=== PATIENT | female | born 1945 | race Caucasian/White ===

== ENCOUNTER 2024-11-16 10:46 | Outpatient (AMB) | payer MEDICARE, SELFPAY ==
--- OUTSIDE RECORDS SUMMARY | 2024-11-16 10:49 | XMS_ITS | Continuity of Care Document ---
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 Immunizations Given and Recorded Vaccine Date Status Refusal Reason influenza virus vaccine, inactivated 08/31/23 [place] rded influenza virus vaccine, inactivated 09/29/22 [place] rded influenza virus vaccine, inactivated 10/13/21 [place] rded influenza virus vaccine, inactivated 09/23/20 Give n influenza virus vaccine, inactivated 10/18/19 Give n influenza virus vaccine, inactivated 09/07/18 Give n influenza virus vaccine, inactivated 1 09/03/17 Gi abraham influenza virus vaccine, inactivated 09/16/16 Give n influenza virus vaccine, inactivated 10/25/15 Give n influenza virus vaccine, inactivated 01/19/14 Give n influenza virus vaccine, inactivated 2 09/18/11 Gi abraham influenza virus vaccine, inactivated 10/25/10 Give n SARS-CoV-2(COVID-19)mRNA-LNP vac([id number]) 08/31/23 Recorded tetanus-diphtheria toxoids (Td) 3 07/13/23 Given tetanus-diphtheria toxoids (Td) 11/29/04 Given pneumococcal 20-valent conjugate vaccine 4 07/13/23 Given [id number] bivalent booster vax 10/15/22 Recorded SARS-CoV-2 (COVID-19) mRNA-1273 vaccine 05/12/22 R ecorded SARS-CoV-2 (COVID-19) mRNA-1273 vaccine 09/23/21 R ecorded SARS-CoV-2 (COVID-19) mRNA-1273 vaccine 02/18/21 G iven SARS-CoV-2 (COVID-19) mRNA-1273 vaccine 01/21/21 G iven pneumococcal 23-valent vaccine 05/15/19 Given pneumococcal 13-valent vaccine 01/29/15 Given FluLaval (oldterm) 07/29/12 Given tetanus/diphtheria/pertussis, acel(Tdap) 07/29/12 Given influ virus vac, H1N1, inactive(oldterm) 5 01/07/10 Given Influenza Virus Vaccine (oldterm) 6 01/07/10 Given Influenza Virus Vaccine (oldterm) 09/29/08 Given Hepatitis B Vaccine (old term) 7 12/21/08 Given Hepatitis B Vaccine (old term) 8 08/01/08 Given Hepatitis B Vaccine (old term) 9 06/27/08 Given Influenza Inactive (IM) (oldterm) 11/29/05 Given Pneumococcal Vaccine (oldterm) 11/29/05 Given 1Result Comment: [09/03/2017] [facility]: [id number] 2Admin Note: ANUEL 3Result Comment: [id number] 4Result Comment: [id number] 5Admin Note: per pt rcvd elsewhere 6Admin Note: per pt rcvd eklsewhere 7Admin Note: #3 8Admin Note: #2 9Admin Note: # 1 Medications amLODIPine 5 mg oral tablet See Instructions, TAKE 1 TABLET EVERY DAY, # 90 tablet, 1 Refills, Maintenance, 09/29/24 12:07:00 [facility], 158, cm, 06/23/24 9:05:00 EDT, Height Start Date: 09/29/24 Status: Ordered Quantity: 90.0 Unit: tablet Repeat number: 1 aspirin 81 mg oral delayed release tablet 81 mg, 1, tablet, By Mouth, Daily, # 90 tablet, Refills 0, Maintenance, 01/13/24 11:19:00 AM EST, Partial fill upon patient request if the prescription is for a schedule II opioid drug. Start Date: 01/13/24 Status: Ordered Quantity: 90.0 Unit: tablet Repeat number: 1 cholecalciferol 1000 intl units oral capsule 1 capsule = 1,000 International_Units, By Mouth, Daily, 0 Refills, Maintenance, 01/07/10 1:03:05 PM EST Start Date: 01/07/10 Status: Ordered Repeat number: 1 CPAP Machine See Instructions, # 1 each, Refills 0, Tot. Refills 0, Maintenance, AUTO CPAP 8- 20cm H2O WITH HEATED HUMIDICATION AND COMPLIANCE DATA FOLLOWED DX:G47.33, 04/28/24 2:58:00 PM EDT, Compound Start Date: 04/28/24 Status: Ordered Quantity: 1.0 Unit: each Repeat number: 1 cpap supplies cpap supplies, See Instructions, # 1 each, Refills 12, Tot. Refills 12, Maintenance, dx G47.33 Pap supplies mask fit to pt pref, headgear/chinstrap, climate line tubing with filters chambers ect, 05/29/20 12:06:00 PM EDT, Supply Start Date: 05/29/20 Status: Ordered Quantity: 1.0 Unit: each Repeat number: 13 CPAP SUPPLIES CPAP SUPPLIES, See Instructions, # 1 each, Refills 0, Tot. Refills 0, Maintenance, TUBING,WATER CHAMBER,MASK, HEADGEAR, FILTERS DX:G47.33, 04/28/24 2:57:00 PM EDT, Compound Start Date: 04/28/24 Status: Ordered Quantity: 1.0 Unit: each Repeat number: 1 diazepam 5 mg oral tablet 5 mg, 1, tablet, By Mouth, Daily at bedtime, PRN, # 30 tablet, Refills 0, Tot. Refills 0, Maintenance, as needed for anxiety, 09/26/24 11:48:00 AM EDT, Route to Pharmacy Electronically, [facility] # [facility], 158, cm, 06/23/24 9:05:00 EDT, Height Start Date: 09/26/24 Status: Ordered Quantity: 30.0 Unit: tablet Repeat number: 1 Estradiol Patch 0.05 mg/24 hours twice weekly transdermal film, extended release 1 patch, Topically, 0 Refills, Maintenance, 11/16/16 5:03:58 PM EST Start Date: 11/16/16 Status: Ordered Repeat number: 1 Ferrous Sulfate Tablet Maintenance, 06/04/15 7:46:49 AM EDT Start Date: 06/04/15 Status: Ordered Repeat number: 1 fluticasone 50 mcg/inh nasal spray See Instructions, USE 1 SPRAY IN EACH NOSTRIL TWICE DAILY (SUBSTITUTED FOR FLONASE), # 48 Gm, 1 Refills, Maintenance, 06/22/24 4:56:00 PM EDT, [facility] Mail Delivery, 90, USE 1 SPRAY IN EACH NOSTRIL TWICE DAILY (SUBSTITUTED FOR FLONASE), 158, cm, 03/23/24 13:28:00 EDT, Height Start Date: 06/22/24 Status: Ordered Quantity: 48.0 Unit: g Repeat number: 1 Glucosamine By Mouth, 0 Refills, Maintenance, 10/28/22 3:08:00 PM EST, Partial fill upon patient request if theprescription is for a schedule II opioid drug. Start Date: 10/28/22 Status: Ordered Repeat number: 1 levothyroxine 0.112 mg oral tablet See Instructions, TAKE 1 TABLET EVERY DAY, # 90 tablet, 1 Refills, Maintenance, 09/29/24 12:07:00 PMEDT, [facility], 158, cm, 06/23/24 9:05:00 EDT, Height Start Date: 09/29/24 Status: Ordered Quantity: 90.0 Unit: tablet Repeat number: 1 lidocaine-prilocaine 2.5%-2.5% topical cream See Instructions, APPLY TO RIGHT LEG ONE HOUR PRIOR TO PROCEDURE AND WRAP LEG IN PLASTIC WRAP, # 30Gm, 0 Refills, Maintenance, 09/26/24 8:39:00 AM EDT, [facility] # [facility], 30, APPLY TO RIGHT LEG ONE HOUR PRIOR TO PROCEDURE AND WRAP LEG IN PLASTIC WRAP, 158, cm, 06/23/24 9:05:00 EDT, Height Start Date: 09/26/24 Status: Ordered Quantity: 30.0 Unit: g Repeat number: 1 LORazepam 0.5 mg oral tablet See Instructions, 1 TABLET EVENING PRIOR TO PROCEDURE;; 1 TABLET 1 HOUR PRIOR TO PROCEDURE, # 2 tablet, 0 Refills, Maintenance, 09/04/24 7:28:00 AM EDT, [facility] # [facility], Partial fill upon patient request if the prescription is for a schedule II opioid drug., 158, cm, 06/23/24 9:05:00 EDT, Height Start Date: 09/04/24 Status: Ordered Quantity: 2.0 Unit: tablet Repeat number: 1 Magnesium Gluconate By Mouth, 0 Refills, Maintenance, 08/12/15 8:23:22 AM EDT Start Date: 08/12/15 Status: Ordered Repeat number: 1 MiraLax = 17 Gm, By Mouth, Daily, 0 Refills, Maintenance, 06/17/22 8:24:00 AM EDT, Partial fill upon patientrequest if the prescription is for a schedule II opioid drug. Start Date: 06/17/22 Status: Ordered Repeat number: 1 Probiotic Formula By Mouth, Daily, 0 Refills, Maintenance, 10/28/22 3:08:00 PM EST, Partial fill upon patient requestif the prescription is for a schedule II opioid drug. Start Date: 10/28/22 Status: Ordered Repeat number: 1 triamcinolone 0.025% topical ointment Topically, 3 times a day, 0 Refills, Maintenance, 06/17/22 8:22:00 AM EDT, Partial fill upon patientrequest if the prescription is for a schedule II opioid drug. Start Date: 06/17/22 Status: Ordered Repeat number: 1 Tylenol PM oral liquid 30 mL, By Mouth, 0 Refills, 04/04/08 4:35:13 PM EDT Start Date: 04/04/08 Status: Ordered Repeat number: 1 Zenpep 25,000 units-79,000 units-105,000 units oral delayed release capsule 1 capsule, By Mouth, 4 times a day, 0 Refills, Maintenance, 06/17/22 8:23:00 AM EDT Start Date: 06/17/22 Status: Ordered Repeat number: 1 Problem List Condition Confirmation Course Effective Dates Status H ealth Status Informant Anxiety Confirmed 09/28/08 Active CD (celiac disease) 1, 2 Confirmed Active Current use of estrogen therapy Confirmed Active H/O ovarian cancer 3 Confirmed Active Headache, migraine NOS Confirmed Active Hypothyroid Confirmed Active Lumbar spondylosis 4 Confirmed Active Obstructive sleep apnea 5 Confirmed 03/05/17 Active Pancreatic insufficiency Confirmed Active Raynaud's disease Confirmed Active Restless leg syndrome - Secondary, due to iron deficiency Confirmed Active Subjective Tinnitus Confirmed Active Tubular adenoma of colon Confirmed 09/23/15 Active Venous insufficiency Confirmed Active Vitamin D Deficiency Confirmed Active 1negative biopsies 2check b12.VIT D 3age 16 4MRI 5REPORT: The apnea/hypopnea index (AHI) was 46.9/hour and respiratory index (RI) was 49.6/hour. The lowest oxygen saturation was 80%. Social History Social History Type Response Smoking Status Never smoker entered on: 01/19/14 Sex Sex Representation Female (finding) Patient Care team information Care Team Personnel Name: Lolita Caicedo NP Position: S PCO Associate Professional Member Role: PCP Address: [address] [place] [address]- Telecom: Care Team Related Persons Name: SHARIFA CROSS Insurance Providers Guarantor name: MONIQUE CROSS Health Plan Information #: 1 Payer: [facility] Member Number: NA Policy Number: NA Group Number: NA
--- OUTSIDE RECORDS SUMMARY | 2024-11-16 10:49 | XMS_ITS | Continuity of Care Document ---
Author Organization [facility] Address [address] [place] [address]- Care Team Providers Care Assisted Living Care Manager Name Role Phone Sascha GLOBAL LOGISTICS ANALYST, Lolita Long Primary Care Physician [place] [facility] [place](s): 10/12/24 - 10/19/24 [facility] [address] [place] [id number] Attending Physician: Guy Aguilar MD Admitting Physician: Guy Aguilar MD Referring Physician: Guy Aguilar MD Encounter Type: Office Visit Allergies, Adverse Reactions, Alerts Substance Criticality Severity Reaction Reaction Severity Status paroxetine Active Dust Wheeze REACTIVE AIRWAY Active Glutens Active Other Environmental Allergy 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 Immunizations Given and Recorded Vaccine Date [...] 10/25/15 Give n influenza virus vaccine, inactivated 2/21/14 Give n influenza virus vaccine, inactivated 2 09/18/11 Gi abraham influenza virus vaccine, inactivated 10/25/10 Give n SARS-CoV-2(COVID-19)mRNA-LNP vac([id number]) 08/31/23 Recorded tetanus-diphtheria toxoids (Td) 3 07/13/23 Given tetanus-diphtheria toxoids (Td) 11/29/04 Given pneumococcal 20-valent conjugate vaccine 4 07/13/23 Given [id number] bivalent booster vax 10/15/22 Recorded SARS-CoV-2 (COVID-19) [...] Vaccine (oldterm) 11/29/05 Given 1Result Comment: [09/03/2017] [facility]: [id number] 2Admin Note: ANUEL 3Result Comment: [id number] 4Result Comment: [id number] 5Admin Note: per pt rcvd elsewhere 6Admin Note: per pt rcvd eklsewhere 7Admin Note: #3 8Admin Note: #2 9Admin Note: # 1 Medications amLODIPine 5 mg oral tablet See Instructions, TAKE 1 TABLET EVERY DAY, # 90 tablet, 1 Refills, Maintenance, 09/29/24 12:07:00 PMEDT, [facility], 158, cm, 06/23/24 [...] 11:48:00 AM EDT, Route to Pharmacy Electronically, [facility] # [facility], 158, cm, 06/23/24 9:05:00 [...] 1 Refills, Maintenance, 06/22/24 4:56:00 PM EDT, [facility], 90, USE 1 [...] tablet, 1 Refills, Maintenance, 09/29/24 12:07:00 PMEDT, [facility], 158, cm, 06/23/24 9:05:00 EDT, Height Start Date: 09/29/24 Status: Ordered Quantity: 90.0 Unit: tablet Repeat number: 1 lidocaine-prilocaine 2.5%-2.5% topical cream See Instructions, APPLY TO RIGHT LEG ONE HOUR PRIOR TO PROCEDURE AND WRAP LEG IN PLASTIC WRAP, # 30Gm, 0 Refills, Maintenance, 09/26/24 8:39:00 AM EDT, [facility] # [facility], 30, APPLY TO RIGHT [...] on: 01/19/14 Sex Sex Representation Female (finding) Note * Korin Cochran MA: PERFORM Event Display: Patient Education/Instruction Authored Date: [id number] Ambulatory Adult Visit Summary [address] [address] Name: MONIQUE CROSS : 1945?? Visit: 10/12/2024 08:44?? Ambulatory Visit Instructions ?? Your Care Team Primary Care Provider Lolita Caicedo NP? This Visit Provider [facility] Nurse What to do next Scheduled Follow-Up Appointments Wednesday 7:50 AM EST ?? With: Lolita Caicedo NP Where: [address] [address]- Status: Pending 2024 9:00 AM EST ?? With: Lauren AQUINO, Guy Reynoso Where: [facility] [address] [address]- Status: Pending Wednesday 2:30 PM EST ?? Where: [facility] [address], [address] [place] [address]- Status: Pending Medications The list below reflects the information in our records and provided by you today along with any changes made during this visit. Please continue your medications until treatment is completed or stopped by your provider. If this is different from the information you have or there are other questions,please contact the prescribing provider. What How Much When Instructions Unchanged Acetaminophen-Diphenhydramine (Tylenol PM oral liquid) 30 Milliliter Oral Unchanged Amlodipine (amLODIPine 5 mg oral tablet) See instructions TAKE 1 TABLET EVERY DAY ?? Unchanged Aspirin (aspirin 81 mg oral delayed release tablet) 1 tab(s) Oral Daily Unchanged bifidobacterium-lactobacillus (Probiotic Formula) Oral Daily Unchanged Cholecalciferol (cholecalciferol 1000 intl units oral capsule) 1 capsule Oral Daily Unchanged Diazepam (diazepam 5 mg oral tablet) 1 tab(s) Oral Daily at Bedtime as needed for as needed for anxiety Unchanged Durable Medical Equipment (CPAP Machine) See instructions AUTO CPAP 8-20cm H2O WITH HEATED HUMIDICATION AND COMPLIANCE DATA FOLLOWED DX:G47.33 ?? Unchanged Durable Medical Equipment (cpap supplies) See instructions dx G47.33 ??Pap supplies mask fit to pt pref, headgear/ chinstrap, climate line tubing with filterschambers ect ?? Unchanged Durable Medical Equipment (CPAP SUPPLIES) See instructions TUBING,WATER CHAMBER,MASK, HEADGEAR, FILTERS DX:G47.33 ?? Unchanged Estradiol (Estradiol Patch 0.05 mg/ 24 hours twice weekly transdermal film, extended release) 1 patch(es) Topically Unchanged Ferrous Sulfate (Ferrous Sulfate Tablet) Unchanged Fluticasone Nasal (fluticasone 50 mcg/ inh nasal spray) See instructions USE 1 SPRAY IN EACH NOSTRIL TWICE DAILY (SUBSTITUTED FOR FLONASE) ?? Unchanged Glucosamine Oral Unchanged Levothyroxine (levothyroxine 0.112 mg oral tablet) See instructions TAKE 1 TABLET EVERY DAY ?? Unchanged Lidocaine/ Prilocaine Topical (lidocaine-prilocaine 2.5%-2.5% topical cream) See instructions APPLY TO RIGHT LEG ONE HOUR PRIOR TO PROCEDURE AND WRAP LEG IN PLASTIC WRAP ?? Unchanged Lorazepam (LORazepam 0.5 mg oral tablet) See instructions 1 TABLET EVENING PRIOR TO PROCEDURE;; 1 TABLET 1 HOUR PRIOR TO PROCEDURE ?? Unchanged Magnesium Gluconate Oral Unchanged Pancrelipase (Zenpep 25,000 units-79,000 units-105,000 units oral delayed release capsule) 1 capsule Oral 4 times a day Unchanged PEG Electrolyte Solution (MiraLax) 17 gram Oral Daily Unchanged Triamcinolone Topical (triamcinolone 0.025% topical ointment) Topically 3 times a day Medications and Immunizations Administered Medications Given During Visit No medications given during this visit.?? Allergies (NKA means No Known Allergies) Dust??(Wheeze, REACTIVE AIRWAY) Glutens Other Environmental Allergy??(Wheeze, SPRAY ATMOSPHERIC SCIENTIST) paroxetine Common Emergency Awareness Tips IS IT A STROKE? Act FAST and Check for these signs: FACE Does the face look uneven? ARM Does one arm drift down? SPEECH Does their speech sound strange? TIME Call at any sign of stroke ?? Heart Attack Signs Chest discomfort: Most heart attacks involve discomfort in the center of the chest and lasts more than a few minutes, or goes away and comes back. It can feel like uncomfortable pressure, squeezing, fullness or pain. Discomfort in upper body: Symptoms can include pain or discomfort in one or both arms, back, neck, jaw or stomach. Shortness of breath: With or without discomfort. Other signs: Breaking out in a cold sweat, nausea, or lightheaded. Remember, MINUTES DO MATTER. If you experience any of these heart attack warning signs, call to get immediate medical attention! ?? Smoking can increase your chances of developing chronic health problems and can cause harmful effects to other family members in your house. If you smoke, you are strongly encouraged to quit. Please call [facility] at [phone] or [phone] ([phone]) or log in to [email or web address] for referrals to smoking cessation programs. ?? The National Suicide Prevention Hotline is available 21/06 if you or someone you know needs to find a reason to keep living. By calling 3-137-828-Machina (2859) you'll be connected to a skilled, trained counselor at a crisis center in your area. [facility] Portal You can view and manage your care through the patient portal or by using a health care andria of your choosing. [employer] is a website that allows you to securely view your medical information including your hospital discharge summary, office visit summaries, medications and follow-up visits. You can also request appointments, renew medications, and request access to your medical information using a health care andria of your choosing, or just ask a question. You can enroll at [email or web address] or register during your next office visit. [facility], in keeping with [facility] guidance, no longer requires face masks for staff, patientsor visitors in most situations. Similiar to time spent indoors at other locations, there is the chance that you were exposed to repiratory viruses during your time with us (such as flu or COVID-19). If you develop symptoms concerning for a viral respiratory infection, please seek testing (and treatment if indicated) from your medical provider or home test kit. ?? Disclaimer: The information provided is of a general nature and is intended to be used in conjunction with the recommendations and advice of your health care practitioner. Every effort has been made to ensure that the information provided is accurate and complete at the time it is provided to you however, as your needs change, or, as new information becomes available, different or additional instructions may be required. ?? If you have questions, please consult with your primary care provider or pharmacist, as appropriate. This information is not intended to serve as substitution for assessment and evaluation by a qualified health care provider. If you do not have a primary care provider, you may find a [facility] provider by calling [facility] Link at [phone]. Patient Care team information Care Team Personnel Name: Lolita Caicedo NP Position: S PCO Associate Professional Member Role: PCP Address: [address] [place] [id number] Telecom: Care Team Related Persons Name: SHARIFA CROSS Insurance Providers Guarantor name: MONIQUE LALAHAMLET Health Plan Information #: 1 Payer: [employer] [facility] Member Number: [id number] Policy Number: NA Group Number: NA Health Plan Information #: 2 Payer: [employer] Member Number: [id number] Policy Number: NA Group Number: NA
--- OUTSIDE RECORDS SUMMARY | 2024-11-16 10:49 | XMS_ITS | Continuity of Care Document ---
Author Organization [facility] Address [address] [place] [address]- Care Team Providers Care Track Liner Operator Name Role Phone Sascha GROUNDS/MAINTENANCE SPECIALIST, Lolita Long Primary Care Physician [phone] [place] [facility] [place](s): 10/12/24 - 11/11/24 [facility] [address] [place] [id number] Attending Physician: Goran Wilson Admitting Physician: Goran Wilson Referring Physician: Admtr [id number] Encounter Type: Triage Allergies, Adverse Reactions, Alerts Substance Criticality Severity Reaction Reaction Severity Status paroxetine Active Glutens Active Dust Wheeze REACTIVE AIRWAY Active Other Environmental Allergy 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 Immunizations Given and Recorded Vaccine Date [...] virus vaccine, inactivated 10/25/10 Give n SARS-CoV-2(COVID-19)mRNA-LNP vac([id number]) 08/31/23 Recorded tetanus-diphtheria toxoids (Td) 3 07/13/23 Given tetanus-diphtheria toxoids (Td) 11/29/04 Given pneumococcal 20-valent conjugate vaccine 4 07/13/23 Given [id number] bivalent booster vax 10/15/22 Recorded SARS-CoV-2 (COVID-19) [...] Vaccine (oldterm) 11/29/05 Given 1Result Comment: [09/03/2017] [facility]: [id number] 2Admin Note: ANUEL 3Result Comment: [id number] 4Result Comment: [id number] 5Admin Note: per pt rcvd elsewhere 6Admin Note: per pt rcvd eklsewhere 7Admin Note: #3 8Admin Note: #2 9Admin Note: # 1 Medications amLODIPine 5 mg oral tablet See Instructions, TAKE 1 TABLET EVERY DAY, # 90 tablet, 1 Refills, Maintenance, 09/29/24 12:07:00 PMEDT, [facility], 158, cm, 06/23/24 [...] at bedtime, PRN, # 30 tablet, Refills 2, Tot. Refills 2, Maintenance, as needed for anxiety, 11/03/24 7:36:00 AM EST, Route to Pharmacy Electronically, [facility] # [facility], 158, cm, 10/09/24 7:51:00 EST, Height Start Date: 11/03/24 Status: Ordered Quantity: 30.0 Unit: tablet Repeat number: 3 Estradiol Patch 0.05 mg/24 hours twice weekly [...] 1 Refills, Maintenance, 06/22/24 4:56:00 PM EDT, [facility], 90, USE 1 [...] tablet, 1 Refills, Maintenance, 09/29/24 12:07:00 PMEDT, [facility], 158, cm, 06/23/24 9:05:00 EDT, Height Start Date: 09/29/24 Status: Ordered Quantity: 90.0 Unit: tablet Repeat number: 1 lidocaine-prilocaine 2.5%-2.5% topical cream See Instructions, APPLY TO RIGHT LEG ONE HOUR PRIOR TO PROCEDURE AND WRAP LEG IN PLASTIC WRAP, # 30Gm, 0 Refills, Maintenance, 09/26/24 8:39:00 AM EDT, [facility] # [facility], 30, APPLY TO RIGHT [...] 0 Refills, Maintenance, 09/04/24 7:28:00 AM EDT, [facility] # [facility], Partial fill upon patient [...] Care team information Care Team Personnel Name: Sascha IRVIN, Lolita Long Position: S PCO Associate Professional Member Role: PCP Address: [address] [place] [address] Telecom: Care Team Related Persons Name: SHARIFA CROSS Insurance Providers Guarantor name: MONIQUE CROSS Health Plan Information #: 1 Payer: [facility] Member Number: NA Policy Number: NA Group Number: NA
--- OUTSIDE RECORDS SUMMARY | 2024-11-16 10:50 | XMS_ITS | Continuity of Care Document ---
Author Organization [facility] Address [address] [place] [address]- Care Team Providers Care Paint Roller Covermaker Name Role Phone Sascha SUPERVISOR RESPIRATORY, Lolita Long Primary Care Physician [facility] Date[facility]s): 10/03/24 - 11/02/24 [facility] [address] [place] [id number] Encounter Type: Triage Allergies, Adverse Reactions, Alerts Substance Criticality Severity Reaction Reaction Severity Status paroxetine Active Glutens Active Dust Wheeze REACTIVE AIRWAY Active Other Environmental Allergy 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 Immunizations Given and Recorded Vaccine [...] virus vaccine, inactivated 10/25/10 Give n SARS-CoV-2(COVID-19)mRNA-LNP vac([id number]) 08/31/23 Recorded tetanus-diphtheria toxoids (Td) 3 07/13/23 Given tetanus-diphtheria toxoids (Td) 11/29/04 Given pneumococcal 20-valent conjugate vaccine 4 07/13/23 Given [id number] bivalent booster vax 10/15/22 Recorded SARS-CoV-2 (COVID-19) [...] Vaccine (oldterm) 11/29/05 Given 1Result Comment: [09/03/2017] [facility]: [id number] 2Admin Note: ANUEL 3Result Comment: [id number] 4Result Comment: [id number] 5Admin Note: per pt rcvd elsewhere 6Admin Note: per pt rcvd eklsewhere 7Admin Note: #3 8Admin Note: #2 9Admin Note: # 1 Medications amLODIPine 5 mg oral tablet See Instructions, TAKE 1 TABLET EVERY DAY, # 90 tablet, 1 Refills, Maintenance, 09/29/24 12:07:00 PMEDT, [facility] Mail Delivery, 158, cm, 06/23/24 [...] 11:48:00 AM EDT, Route to Pharmacy Electronically, [facility], 158, cm, 06/23/24 [...] 1 Refills, Maintenance, 06/22/24 4:56:00 PM EDT, [facility] Mail Delivery, 90, USE 1 [...] tablet, 1 Refills, Maintenance, 09/29/24 12:07:00 PMEDT, [facility] Mail Delivery, 158, cm, 06/23/24 9:05:00 EDT, Height Start Date: 09/29/24 Status: Ordered Quantity: 90.0 Unit: tablet Repeat number: 1 lidocaine-prilocaine 2.5%-2.5% topical cream See Instructions, APPLY TO RIGHT LEG ONE HOUR PRIOR TO PROCEDURE AND WRAP LEG IN PLASTIC WRAP, # 30Gm, 0 Refills, Maintenance, 09/26/24 8:39:00 AM EDT, [facility] # [facility], 30, APPLY TO RIGHT [...] Refills, Maintenance, 09/04/24 7:28:00 AM EDT, [facility], Partial fill upon patient [...] PCO Associate Professional Member Role: PCP Address: [address] [place] [address]- Telecom: Care Team Related Persons Name: SHARIFA CROSS Insurance Providers Guarantor name: MONIQUE CROSS Health Plan Information #: 1 Payer: [facility] Member Number: NA Policy Number: NA Group Number: NA
--- OUTSIDE RECORDS SUMMARY | 2024-11-16 10:50 | XMS_ITS | Continuity of Care Document ---
Author Organization [facility] Address [address] [place] [address]- Care Team Providers Care Packer Name Role Phone Sascha MANAGER UNION, Lolita Long Primary Care Physician [facility]counter [facility] Date[facility]s): 10/12/24 - 11/11/24 [facility] [address] [place] [address] Attending Physician: Goran Wilson Admitting Physician: Goran Wilson Referring Physician: Admtr ArJacinto Encounter Type: Triage Allergies, Adverse Reactions, Alerts Substance Criticality Severity Reaction Reaction Severity Status paroxetine Active Dust Wheeze REACTIVE AIRWAY Active Glutens Active Other Environmental Allergy 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 Immunizations Given and Recorded Vaccine [...] virus vaccine, inactivated 10/25/10 Give n SARS-CoV-2(COVID-19)mRNA-LNP vac([id number]) 08/31/23 Recorded tetanus-diphtheria toxoids (Td) 3 07/13/23 Given tetanus-diphtheria toxoids (Td) 11/29/04 Given pneumococcal 20-valent conjugate vaccine 4 07/13/23 Given [id number] bivalent booster vax 10/15/22 Recorded SARS-CoV-2 (COVID-19) [...] Vaccine (oldterm) 11/29/05 Given 1Result Comment: [09/03/2017] [facility]: [id number] 2Admin Note: ANUEL 3Result Comment: [id number] 4Result Comment: [id number] 5Admin Note: per pt rcvd elsewhere 6Admin Note: per pt rcvd eklsewhere 7Admin Note: #3 8Admin Note: #2 9Admin Note: # 1 Medications amLODIPine 5 mg oral tablet See Instructions, TAKE 1 TABLET EVERY DAY, # 90 tablet, 1 Refills, Maintenance, 09/29/24 12:07:00 PMEDT, [facility] Mail Delivery, 158, cm, 06/23/24 9:05:00 [...] 7:36:00 AM EST, Route to Pharmacy Electronically, [facility] # [facility], 158, cm, 10/09/24 7:51:00 [...] 1 Refills, Maintenance, 06/22/24 4:56:00 PM EDT, [facility] Mail Delivery, 90, USE 1 SPRAY [...] tablet, 1 Refills, Maintenance, 09/29/24 12:07:00 PMEDT, [facility] Mail Delivery, 158, cm, 06/23/24 9:05:00 EDT, Height Start Date: 09/29/24 Status: Ordered Quantity: 90.0 Unit: tablet Repeat number: 1 lidocaine-prilocaine 2.5%-2.5% topical cream See Instructions, APPLY TO RIGHT LEG ONE HOUR PRIOR TO PROCEDURE AND WRAP LEG IN PLASTIC WRAP, # 30Gm, 0 Refills, Maintenance, 09/26/24 8:39:00 AM EDT, [facility] # [facility], 30, APPLY TO [...] Maintenance, 09/04/24 7:28:00 AM EDT, [facility] # [facility], Partial fill upon [...] Personnel Name: Sascha IRVIN, Lolita Long Position: [facility] PCO Associate Professional Member Role: PCP Address: [address] [place] [address]- Telecom: Care Team Related Persons Name: SHARIFA CROSS Insurance Providers Guarantor name: MONIQUE CROSS Health Plan Information #: 1 Payer: [facility] Member Number: NA Policy Number: NA Group Number: NA
--- OUTSIDE RECORDS SUMMARY | 2024-11-16 10:50 | XMS_ITS | Continuity of Care Document ---
Author Organization [facility] Address [address] [place] [address]- Care Team Providers Care Procurement Consultant Name Role Phone Lolita Caicedo NP Primary Care Physician Encounter [facility] Date(s): 10/09/24 - 10/16/24 [facility] [address] [place] [address] Attending Physician: Lauren AQUINO, Guy Reynoso Referring Physician: Lolita Caicedo NP Encounter Type: Office Visit Allergies, Adverse Reactions, Alerts Substance Criticality Severity Reaction Reaction Severity Status paroxetine Active Glutens Active Dust Wheeze REACTIVE AIRWAY Active Other Environmental Allergy 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 Immunizations Given and Recorded Vaccine Date [...] virus vaccine, inactivated 10/25/10 Give n SARS-CoV-2(COVID-19)mRNA-LNP vac([id number]) 08/31/23 Recorded tetanus-diphtheria toxoids (Td) 3 07/13/23 Given tetanus-diphtheria toxoids (Td) 11/29/04 Given pneumococcal 20-valent conjugate vaccine 4 07/13/23 Given [id number] bivalent booster vax 10/15/22 Recorded SARS-CoV-2 (COVID-19) [...] Vaccine (oldterm) 11/29/05 Given 1Result Comment: [09/03/2017] [facility]: [id number] 2Admin Note: ANUEL 3Result Comment: [id number] 4Result Comment: [id number] 5Admin Note: per pt rcvd elsewhere 6Admin Note: per pt rcvd eklsewhere 7Admin Note: #3 8Admin Note: #2 9Admin Note: # 1 Medications amLODIPine 5 mg oral tablet See Instructions, TAKE 1 TABLET EVERY DAY, # 90 tablet, 1 Refills, Maintenance, 09/29/24 12:07:00 PMEDT, [facility] Mail Delivery, 158, cm, 06/23/24 9:05:00 [...] 11:48:00 AM EDT, Route to Pharmacy Electronically, [facility] # [facility], 158, cm, 06/23/24 [...] 1 Refills, Maintenance, 06/22/24 4:56:00 PM EDT, [facility] Mail Delivery, 90, USE 1 SPRAY [...] tablet, 1 Refills, Maintenance, 09/29/24 12:07:00 PMEDT, [facility] Mail Delivery, 158, cm, 06/23/24 9:05:00 EDT, Height Start Date: 09/29/24 Status: Ordered Quantity: 90.0 Unit: tablet Repeat number: 1 lidocaine-prilocaine 2.5%-2.5% topical cream See Instructions, APPLY TO RIGHT LEG ONE HOUR PRIOR TO PROCEDURE AND WRAP LEG IN PLASTIC WRAP, # 30Gm, 0 Refills, Maintenance, 09/26/24 8:39:00 AM EDT, [facility] # 50, 30, APPLY TO [...] 0 Refills, Maintenance, 09/04/24 7:28:00 AM EDT, [facility] # 50, Partial fill upon [...] 49.6/hour. The lowest oxygen saturation was 80%. Vital Signs Most recent to oldest [Reference Range]: 1 Height 158.0 cm (10/09/24 7:51 AM) Weight 53.0 kg (10/09/24 7:51 AM) Pulse Rate [55-90 bpm] 62 bpm (10/09/24 7:51 AM) Body Mass Index [18.5-24.99 kg/m2] 21.23 kg/m2 (10/09/24 7:51 AM) Blood Pressure [90-138/55-84 mm Hg] 119/ 41mm Hg (10/09/24 7:51 AM) Blood pressure sites Arm, left (10/09/24 7:51 AM) Weight Obtained Via Patient/family state d (10/09/24 7:51 AM) Social History Social History Type Response Smoking Status Never smoker entered on: 01/19/14 Sex Sex Representation Female (finding) History and physical note * Event Display: History and Physical Hospital Authored Date: Note * Laly Borden: PERFORM Event Display: Patient Education/Instruction Authored Date: Ambulatory Adult Visit Summary S [address] [facility] [address] [place] [address] Name: MONIQUE CROSS : 1945?? Visit: 10/09/2024 07:43?? Ambulatory Visit Instructions ?? Your Care Team Primary Care Provider Lolita Caicedo NP? This Visit Provider Lauren AQUINO, Guy Reynoso Vitals Signs Pulse Rate: 62 bpm Height: 158 cm Systolic Blood Pressure: 119 mm Hg Weight: 53 kg Diastolic Blood Pressure:??41 mm Hg??Low Body Mass Index: 21.23 kg/m2 ?? Body surface area: 1.53 What to do next Scheduled Follow-Up Appointments 2023 8:45 AM EST ?? Where: [facility] [address] [place] [address]- Status: Pending 2023 9:15 AM EST ?? Where: [facility] [address] [place] [address]- Status: Pending Wednesday 7:50 AM EST ?? With: Sascha IRVIN, Lolita Long Where: [address] [address]- Status: Pending Wednesday 2:30 PM EST ?? Where: [facility] [place] [address] [facility], [address] [place] [address]- Status: Pending Medications The list below reflects [...] AND WRAP LEG IN PLASTIC WRAP ?? Pickup at [facility] Unchanged Lorazepam (LORazepam 0.5 mg oral tablet) See instructions 1 TABLET EVENING PRIOR TO PROCEDURE;; 1 TABLET 1 HOUR PRIOR TO PROCEDURE ?? Pickup at [facility] # [facility] Unchanged Magnesium Gluconate Oral Unchanged Pancrelipase (Zenpep 25,000 units-79,000 units-105,000 units oral delayed release capsule) 1 capsule Oral 4 times a day Unchanged PEG Electrolyte Solution (MiraLax) 17 gram Oral Daily Unchanged Triamcinolone Topical (triamcinolone 0.025% topical ointment) Topically 3 times a day Pharmacy Information [facility] # 50: [address] [place], [place] [id number] [phone] Medications and Immunizations Administered Medications Given During Visit No medications given during this visit.?? Allergies (NKA means No Known Allergies) Dust??(Wheeze, REACTIVE AIRWAY) Glutens Other Environmental Allergy??(Wheeze, SPRAY BUSINESS CONTROLLER) paroxetine Common Emergency Awareness Tips IS IT [...] are strongly encouraged to quit. Please call [facility] BDA Link at [phone] or [phone]) or log in to [email or web address] for referrals to smoking cessation programs. ?? The National Suicide Prevention Hotline is available 21/06 if you or someone you know needs to find a reason to keep living. By calling 9-521-434-Liquiverse (9171) you'll be connected to a skilled, trained counselor at a crisis center in your area. [facility]DA Portal You can view and manage your care through the patient portal or by using a health care andria of your choosing. Markit is a website that allows you to securely view your medical information including your hospital discharge summary, office visit summaries, medications and follow-up visits. You can also request appointments, renew medications, and request access to your medical information using a health care andria of your choosing, or just ask a question. You can enroll at [email or web address] or register during your next office visit. [facility], in keeping with [place] guidance, no longer requires face masks for [...] primary care provider, you may find a [facility] provider by calling [facility] at [phone]. Patient Care team information Care Team Personnel Name: Lolita Caicedo NP Position: [facility] PCO Associate Professional Member Role: PCP Address: [address] [place] [id number] Telecom: Care Team Related Persons Name: SHARIFA CROSS Insurance Providers Guarantor name: MONIQUE CROSS Health Plan Information #: 1 Payer: [employer] Member Number: [id number] Policy Number: NA Group Number: [id number] Health Plan Information #: 2 Payer: [facility] Member Number: [id number] Policy Number: NA Group Number: NA
--- OUTSIDE RECORDS SUMMARY | 2024-11-16 10:50 | XMS_ITS | Continuity of Care Document ---
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 Immunizations Given and Recorded Vaccine Date [...] virus vaccine, inactivated 10/25/10 Give n SARS-CoV-2(COVID-19)mRNA-LNP vac([id number]) 08/31/23 Recorded tetanus-diphtheria toxoids (Td) 3 07/13/23 Given tetanus-diphtheria toxoids (Td) 11/29/04 Given pneumococcal 20-valent conjugate vaccine 4 07/13/23 Given [id number] bivalent booster vax 10/15/22 Recorded SARS-CoV-2 (COVID-19) [...] Vaccine (oldterm) 11/29/05 Given 1Result Comment: [09/03/2017] [facility]: [id number] 2Admin Note: ANUEL 3Result Comment: [id number] 4Result Comment: [id number] 5Admin Note: per pt rcvd elsewhere 6Admin Note: per pt rcvd eklsewhere 7Admin Note: #3 8Admin Note: #2 9Admin Note: # 1 Medications amLODIPine 5 mg oral tablet See Instructions, TAKE 1 TABLET EVERY DAY, # 90 tablet, 1 Refills, Maintenance, 09/29/24 12:07:00 [facility], 158, cm, 06/23/24 9:05:00 [...] 11:48:00 AM EDT, Route to Pharmacy Electronically, [facility], 158, cm, 06/23/24 9:05:00 [...] 1 Refills, Maintenance, 06/22/24 4:56:00 PM EDT, [facility] Mail Delivery, 90, USE 1 SPRAY [...] tablet, 1 Refills, Maintenance, 09/29/24 12:07:00 PMEDT, [facility] Delivery, 158, cm, 06/23/24 9:05:00 EDT, Height Start Date: 09/29/24 Status: Ordered Quantity: 90.0 Unit: tablet Repeat number: 1 lidocaine-prilocaine 2.5%-2.5% topical cream See Instructions, APPLY TO RIGHT LEG ONE HOUR PRIOR TO PROCEDURE AND WRAP LEG IN PLASTIC WRAP, # 30Gm, 0 Refills, Maintenance, 09/26/24 8:39:00 AM EDT, [facility] # [facility], 30, APPLY TO RIGHT [...] PCO Associate Professional Member Role: PCP Address: [address] [place] [address]- Telecom: Care Team Related Persons Name: SHARIFA CROSS Insurance Providers Guarantor name: MONIQUE CROSS Health Plan Information #: 1 Payer: [facility] Member Number: NA Policy Number: NA Group Number: NA
--- OUTSIDE RECORDS SUMMARY | 2024-11-16 10:50 | XMS_ITS | Continuity of Care Document ---
Author Organization [facility] Address [address] [place] [address]- Care Team Providers Care Director Of Compensation Name Role Phone Sascha VISUAL EDUCATION DIRECTOR, Lolita Long Primary Care Physician Encounter [facility] Date(s): 07/14/24 - 11/11/24 [facility] [address] [place] [id number] Attending Physician: Guy Aguilar MD Admitting Physician: Guy Aguilar MD Referring Physician: Guy Aguilar MD Encounter Type: Pre-Outpt Allergies, Adverse Reactions, Alerts Substance Criticality Severity Reaction Reaction Severity Status paroxetine Active Dust Wheeze REACTIVE AIRWAY Active Glutens Active Other Environmental Allergy 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 Immunizations Given and Recorded Vaccine Date [...] virus vaccine, inactivated 10/25/10 Give n SARS-CoV-2(COVID-19)mRNA-LNP vac([id number]) 08/31/23 Recorded tetanus-diphtheria toxoids (Td) 3 07/13/23 Given tetanus-diphtheria toxoids (Td) 11/29/04 Given pneumococcal 20-valent conjugate vaccine 4 07/13/23 Given [id number] bivalent booster vax 10/15/22 Recorded SARS-CoV-2 (COVID-19) [...] Vaccine (oldterm) 11/29/05 Given 1Result Comment: [09/03/2017] [facility]: [id number] 2Admin Note: ANUEL 3Result Comment: [id number] 4Result Comment: [id number] 5Admin Note: per pt rcvd elsewhere 6Admin Note: per pt rcvd eklsewhere 7Admin Note: #3 8Admin Note: #2 9Admin Note: # 1 Medications amLODIPine 5 mg oral tablet See Instructions, TAKE 1 TABLET EVERY DAY, # 90 tablet, 1 Refills, Maintenance, 09/29/24 12:07:00 PMEDT, [facility] Mail [facility], 158, cm, 06/23/24 9:05:00 [...] 7:36:00 AM EST, Route to Pharmacy Electronically, [facility], 158, cm, 10/09/24 7:51:00 [...] 1 Refills, Maintenance, 06/22/24 4:56:00 PM EDT, [facility] Mail Delivery, 90, USE 1 SPRAY [...] tablet, 1 Refills, Maintenance, 09/29/24 12:07:00 PMEDT, [facility] Mail [facility], 158, cm, 06/23/24 9:05:00 [...] Team Personnel Name: Lolita Caicedo NP Position: [facility] PCO Associate Professional Member Role: PCP Address: [address] [place] [address]- Telecom: Care Team Related Persons Name: SHARIFA CROSS Insurance Providers Guarantor name: MONIQUE CROSS Health Plan Information #: 2 Payer: NA Member Number: [id number] Policy Number: NA Group Number: [id number] Health Plan Information #: 1 Payer: [facility] Member Number: [id number] Policy Number: NA Group Number: NA Health Plan Information #: 3 Payer: [facility] Member Number: [id number] Policy Number: NA Group Number: NA
--- OUTSIDE RECORDS SUMMARY | 2024-11-16 10:50 | XMS_ITS | Continuity of Care Document ---
Author Organization [facility] Address [address] [place] [address]- Care Team Providers Care Transition Nurse Name Role Phone Sascha SERVICES PROGRAM MANAGER, Lolita Long Primary Care Physician Encounter [facility] Date(s): 10/09/24 - 11/08/24 [facility] [address] [place] [address] Attending Physician: Goran Wilson Admitting Physician: Goran Wilson Referring Physician: AdmtrGoran Encounter Type: Triage Allergies, Adverse Reactions, Alerts Substance Criticality Severity Reaction Reaction Severity Status paroxetine Active Glutens Active Dust Wheeze REACTIVE AIRWAY Active Other Environmental Allergy 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 Immunizations Given and Recorded Vaccine Date [...] virus vaccine, inactivated 10/25/10 Give n SARS-CoV-2(COVID-19)mRNA-LNP vac([id number]) 08/31/23 Recorded tetanus-diphtheria toxoids (Td) 3 07/13/23 Given tetanus-diphtheria toxoids (Td) 11/29/04 Given pneumococcal 20-valent conjugate vaccine 4 07/13/23 Given [id number] bivalent booster vax 10/15/22 Recorded SARS-CoV-2 (COVID-19) [...] Vaccine (oldterm) 11/29/05 Given 1Result Comment: [09/03/2017] [facility]: [id number] 2Admin Note: ANUEL 3Result Comment: [id number] 4Result Comment: [id number] 5Admin Note: per pt rcvd elsewhere 6Admin Note: per pt rcvd eklsewhere 7Admin Note: #3 8Admin Note: #2 9Admin Note: # 1 Medications amLODIPine 5 mg oral tablet See Instructions, TAKE 1 TABLET EVERY DAY, # 90 tablet, 1 Refills, Maintenance, 09/29/24 12:07:00 PMEDT, [facility] Mail Delivery, 158, cm, 06/23/24 [...] 7:36:00 AM EST, Route to Pharmacy Electronically, [facility], 158, cm, 10/09/24 7:51:00 [...] 1 Refills, Maintenance, 06/22/24 4:56:00 PM EDT, [facility] Mail Delivery, 90, USE 1 [...] tablet, 1 Refills, Maintenance, 09/29/24 12:07:00 PMEDT, [facility] Mail Delivery, 158, cm, 06/23/24 9:05:00 EDT, Height Start Date: 09/29/24 Status: Ordered Quantity: 90.0 Unit: tablet Repeat number: 1 lidocaine-prilocaine 2.5%-2.5% topical cream See Instructions, APPLY TO RIGHT LEG ONE HOUR PRIOR TO PROCEDURE AND WRAP LEG IN PLASTIC WRAP, # 30Gm, 0 Refills, Maintenance, 09/26/24 8:39:00 AM EDT, [facility] # [facility], 30, APPLY TO RIGHT [...] 0 Refills, Maintenance, 09/04/24 7:28:00 AM EDT, [facility] # [facility], Partial fill upon patient [...] Personnel Name: Sascha IRVIN, Lolita Long Position: [facility] PCO Associate Professional Member Role: PCP Address: [address] [place] [address]- Telecom: Care Team Related Persons Name: SHARIFA CROSS Insurance Providers Guarantor name: MONIQUE CROSS Health Plan Information #: 1 Payer: [facility] Member Number: NA Policy Number: NA Group Number: NA
--- OUTSIDE RECORDS SUMMARY | 2024-11-16 10:50 | XMS_ITS | Continuity of Care Document ---
Author Organization [facility] Address [address] [place] [id number]- Care Team Providers Care Public Area Attendant Name Role Phone Sascha IRVIN, Lolita Long Primary Care Physician [phone] [place] [facility] [place]): [place]14[place]24 - 11/11/24 [facility] [address] [place] [id number] Attending Physician: Cathy Quevedo NP Referring Physician: Lolita Caicedo NP Encounter Type: Pre Office Visit Allergies, Adverse Reactions, Alerts Substance Criticality Severity Reaction Reaction Severity Status paroxetine Active Dust Wheeze REACTIVE AIRWAY Active Glutens Active Other Environmental Allergy 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 Immunizations Given and Recorded Vaccine Date [...] virus vaccine, inactivated 10/25/10 Give n SARS-CoV-2(COVID-19)mRNA-LNP vac(ipi238) 08/31/23 Recorded tetanus-diphtheria toxoids (Td) 3 07/13/23 Given tetanus-diphtheria toxoids (Td) 11/29/04 Given pneumococcal 20-valent conjugate vaccine 4 07/13/23 Given [id number] bivalent booster vax 10/15/22 Recorded SARS-CoV-2 (COVID-19) [...] Vaccine (oldterm) 11/29/05 Given 1Result Comment: [09/03/2017] [facility] [place]: [id number] 2Admin Note: ANUEL 3Result Comment: [id number] 4Result Comment: [id number] 5Admin Note: per pt rcvd elsewhere 6Admin Note: per pt rcvd eklsewhere 7Admin Note: #3 8Admin Note: #2 9Admin Note: # 1 Medications amLODIPine 5 mg oral tablet See Instructions, TAKE 1 TABLET EVERY DAY, # 90 tablet, 1 Refills, Maintenance, 09/29/24 12:07:00 PMEDT, [facility] Mail Delivery, 158, cm, [...] 7:36:00 AM EST, Route to Pharmacy Electronically, [facility] # [facility], 158, cm, 10/09/24 7:51:00 [...] 1 Refills, Maintenance, 06/22/24 4:56:00 PM EDT, [facility], 90, USE [...] tablet, 1 Refills, Maintenance, 09/29/24 12:07:00 PMEDT, [facility], 158, cm, 06/23/24 9:05:00 EDT, Height Start Date: 09/29/24 Status: Ordered Quantity: 90.0 Unit: tablet Repeat number: 1 lidocaine-prilocaine 2.5%-2.5% topical cream See Instructions, APPLY TO RIGHT LEG ONE HOUR PRIOR TO PROCEDURE AND WRAP LEG IN PLASTIC WRAP, # 30Gm, 0 Refills, Maintenance, 09/26/24 8:39:00 AM EDT, [facility], 30, APPLY TO RIGHT [...] 0 Refills, Maintenance, 09/04/24 7:28:00 AM EDT, [facility], Partial fill upon patient [...] Team Personnel Name: Lolita Caicedo NP Position: [facility] Associate Professional Member Role: PCP Address: [address] [place] [id number] Telecom: Care Team Related Persons Name: SHARIFA CROSS Insurance Providers Guarantor name: MONIQUE CROSS Health Plan Information #: 1 Payer: [employer] Member Number: [id number] Policy Number: NA Group Number: [id number] Health Plan Information #: 2 Payer: [facility] Member Number: [id number] Policy Number: NA Group Number: [id number]
--- NOTE | 2024-11-16 11:43 | MHC.OFFWIV ---
Intake Vital Signs 11/16/24 11:46 Height 5 ft 3 in Weight 122 lb BMI 21.6 BP 112/74 Blood Pressure Location Rt brachial Position Sitting Pulse 74 Pulse Source Pulse Oximeter Temp 98.1 F Temp Source Oral Pulse Oximetry (%) 98 Oxygen Delivery Method Room Air Intake Visit Reasons: EP Sore throat/swollen glands, head congest-2wks Intake Note: Patient here for head congestion, chest congestion and headache that has been present for about 2 weeks. Patient Tobacco Use Status: Never used Tobacco Allergies gluten [GLUTEN] Allergy (Severe, Unverified 11/16/24 11:49) DIARRHEA perfume [PERFUME] Allergy (Mild, Unverified 11/16/24 11:49) DIFFICULTY BREATHING paroxetine [From PAXIL] Allergy (Unknown, Unverified 11/16/24 11:49) UNKNOWN SMOKE Allergy (Mild, Uncoded 11/16/24 11:49) DIFFICULTY BREATHING Do you need a note to return to daycare/school/sports/work: No HPI EP Sore throat/swollen glands, head congest-2wks HPI Details This note is constructed using voice recognition software. While every effort has been made to ensure accuracy, prospecting observer errors may have been included. The patient is a 78 year old female who presents to the clinic today with sinus congestion, sore throat, for the past 2 weeks. She denies fever, chills, cough, shortness of breath. She does report that she has been working throughout. She has tried Tylenol and Motrin, which have not seem to help her. She reports that the pain in her sinuses is worse when she leans forward. She denies lightheadedness, dizziness, body aches. [facility] Social History Patient Tobacco Use Status: Never used Tobacco Review of Systems Const All systems reviewed & are unremarkable except as noted in HPI and below Physical Exam Vital Signs: Last Vital Signs Temp 98.1 F 11/16/24 11:46 Pulse 74 11/16/24 11:46 BP 112/74 11/16/24 11:46 Pulse Ox 98 11/16/24 11:46 Oxygen Delivery Method Room Air 11/16/24 11:46 BMI result Body Mass Index 21.6 Const General: cooperative, healthy appearing, comfortable and no acute distress Orientation/consciousness: patient oriented x3 Limitations: no limitations HEENT Head: Yes normal to inspection Ears: hearing grossly normal bilaterally, external ears normal and TM's normal bilaterally General nose exam: Normal external nose present, Normal nares present, Abnormal mucous membranes and turbinates present erythematous and Nasal discharge present purulent Face and sinus: Yes normal facial exam and Yes sinus tenderness (Maxillary, right more than left) Mouth: Normal oral and palatal mucosa present and moist mucous membranes Throat: Yes posterior oropharynx normal, Yes tonsils normal and Yes uvula midline Eyes General: appearance normal, both eyes and all related structures Neck Neck: Yes normal visual inspection Resp Effort & Inspection: normal respiratory effort, able to speak in complete sentences, Actively coughing, no respiratory distress, not tachypneic, no tripod positioning and no use of accessory muscles Auscultation: clear to auscultation bilaterally Cardio Rate: regular rate Rhythm: regular rhythm Heart sounds: normal S1 and S2 Skin General skin exam: no rashes or lesions noted Neuro General: patient oriented x3 Extrem General: Yes normal to inspection and Yes no clubbing, cyanosis or edema Assessment & Plan Assessment & Plan (1) Sinusitis: Code(s): J32.9 - Chronic sinusitis, unspecified Qualifiers: Sinusitis location: maxillary Chronicity: acute Recurrence: non-recurrent Qualified Code(s): J01.00 - Acute maxillary sinusitis, unspecified Plan: Supportive measures encouraged and reviewed. Advised consideration of sinus rinse if needed. Antibiotic sent to requested pharmacy, advised patient to take antibiotics until completed and not to stop if feeling better, unless the patient has side effects. Advised patient to follow up with primary care provider with worsening or failure to resolve. Plan See above for full details and plan. Medications: New amoxicillin-pot clavulanate 875-125 mg 1 tab PO BID 7 days 14 tabs 0RF Coding Level of Care Code Est Pt Level 3 (75825) Diagnoses Acute non-recurrent maxillary sinusitis J01.00 Sinusitis location: maxillary Chronicity: acute Recurrence: non-recurrent
[2024-11-16 11:46] VITALS: BP 112/74; PULSE 74; TEMP 36.7; O2SAT 98; BMI 21.6
== END 2024-11-16 12:15 | disposition home or self-care (01) ==
PROVIDERS: PCP Internal Medicine; Visit Provider Registered Nurse
DX: J01.00 Acute maxillary sinusitis, unspecified (principal)

== ENCOUNTER → 2024-11-16 10:46 | Outpatient (BNVA) | payer MEDICARE, SELFPAY | PROVIDERS: PCP Internal Medicine; Visit Provider Registered Nurse | DX: J01.00 Acute maxillary sinusitis, unspecified (principal) | CPT/HCPCS: 99212 ==

== ENCOUNTER 2025-05-18 10:38 | Outpatient (AMB) | payer OTHER, SELFPAY ==
--- NOTE | 2025-05-18 10:48 | MHC.PC.OV ---
Vital Signs 05/18/25 11:06 Height 5 ft 3 in Weight 118 lb 4 oz BMI 20.9 BP 102/72 Blood Pressure Location Rt brachial Position Sitting Pulse 59 Pulse Source Pulse Oximeter Temp 98.1 F Temp Source Temporal Artery Scan Pulse Oximetry (%) 98 Oxygen Delivery Method Room Air Intake Visit Reasons: New Appt New Patient requesitng an PE Intake Note: Angeli presents in the office today to establish care and a TDAP vaccination Allergies gluten (GLUTEN) Allergy (Severe, Verified 05/18/25 11:14) DIARRHEA perfume (PERFUME) Allergy (Mild, Verified 05/18/25 11:14) DIFFICULTY BREATHING paroxetine (From PAXIL) Allergy (Unknown, Verified 05/18/25 11:14) UNKNOWN SMOKE Allergy (Mild, Uncoded 05/18/25 10:57) DIFFICULTY BREATHING Medication List - Last Reconciled 05/18/25 by Lyubov Stoddard, PMP CERTIFIED PROJECT MANAGER- amlodipine 5 mg PO DAILY diazepam 5 mg PO BEDTIME PRN estradiol (Lyllana) patches transdermal fluticasone propionate 50 mcg/actuation sprays intranasal levothyroxine (Levo-T) 112 mcg PO DAILY [id number] 3,000-10,000 -14,000-unit (Zenpep) 4x's a day Tobacco use date assessed: 05/18/25 Fall risk assessment: 1 Fall in past year Last assessed Fall Risk: 05/18/25 Dental Screening Dental Screen Date: 05/18/25 Did you have a dental visit in the last 12 months?: Yes Did you have a dental problem in the last 6 months where you did not have access to dental care?: No Was dental information given to patient?: Patient has dentist HPI HPI Comments History of Present Illness Details Julia 79 y/o F with hypothyroid, Raynauds, environmental Allergies, Pancreatic Enzyme Def, Celiac, IBS SurgHx: FHx 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 Colon: Mammo DEXA PAP Vaccines: Tdap 2022 AAA screen EKG: [place] of Care: GI - Dr Aline Srivastava Derm - visit 1 week ago [facility] History of Present Illness - The patient is a 79-year-old female presenting for establishment of care and management of multiple chronic conditions. -Previous PCP: [facility] No records avail. - Raynaud's phenomenon: Managed with amlodipine 5 mg. - Hypothyroidism: On levothyroxine 112 mcg, six days a week. - Exocrine pancreatic insufficiency: Managed with pancreatic enzymes before meals. - Celiac disease: Maintains a gluten-free diet. - Irritable bowel syndrome: Stable with bowel softeners and probiotics. - Anxiety: Significant job-related stress, considering counseling but declined today. - Insomnia: Uses diazepam nightly, currently out of medication. does not use PRN. This was first started for RLS. Mind does not stop at night w/o it. - Obstructive sleep apnea: Uses CPAP effectively. - Varicose veins: Recent removal RLE, uses compression stockings. - Env. allergies using flonase Review of Systems - Cardiovascular: Denies chest pain or palpitations. - Gastrointestinal: Reports stable bowel movements with daily bowel softeners and probiotics. Denies diarrhea or constipation unless gluten is ingested. - Neurological: Reports insomnia and anxiety-related sleep disturbances. Denies headaches or dizziness. - Respiratory: Denies dyspnea, uses CPAP for obstructive sleep apnea. Physical Exam General: Well developed, well nourished, in no acute distress. Appears stated age. Head: Normocephalic, atraumatic. Eyes: Pupils are equal, round and reactive to light and accommodation. Conjunctivae are clear. Lungs: Clear to auscultation bilaterally. No rales, rhonchi or wheeze noted. Good air flow in all seay. Heart: Regular rate and rhythm. No murmurs, click, rubs or gallops are noted. Musculoskeletal: Joints are nontender, without swelling, redness, or effusions. Pulses: Peripheral pulses are equal and palpable bilaterally. Extremities: No clubbing, cyanosis noted. Nonpitting edema LLE, Swelling in the Left leg, (baseline since surgery, especially in the summertime.) Psych: Mood and affect appropriate. Reports being under a lot of pressure with work, considering counseling. Discussion Notes I discussed with the patient the importance of managing her chronic conditions, including Raynaud's phenomenon, hypothyroidism, and exocrine pancreatic insufficiency. We reviewed her current medications and the need for refills, particularly for diazepam, which she uses for insomnia. I recommended follow-up labs to assess her thyroid function and other relevant parameters. We also discussed the potential benefits of counseling for her anxiety and job-related stress. The patient was advised to continue using her CPAP for obstructive sleep apnea and to maintain her gluten-free diet for celiac disease. Follow-up was scheduled in a few weeks to review lab results and update her care plan. Assessment and Plan 1. Raynaud's phenomenon - Continue amlodipine 5 mg daily. 2. Hypothyroidism - Continue levothyroxine 112 mcg six days a week. TSH 4.91, she is feeling fine, so keep same dosing for now, refills sent - Follow-up labs for thyroid function. 3. Exocrine pancreatic insufficiency - Continue pancreatic enzymes before meals. 4. Celiac disease - Maintain gluten-free diet. 5. Irritable bowel syndrome - Continue bowel softeners and probiotics. 6. Anxiety - Consider counseling for stress management. 7. Insomnia - Refill diazepam. - Consider sleep hygiene. - will review alternatives at next visit 8. Obstructive sleep apnea - Continue CPAP use. 9. Varicose veins - Use compression stockings. Patient Instructions - Continue taking amlodipine 5 mg daily for Raynaud's phenomenon. - Take levothyroxine 112 mcg six days a week and follow up with labs for thyroid function. - Continue pancreatic enzyme supplements before meals. - Maintain a strict gluten-free diet to manage celiac disease. - Use bowel softeners and probiotics daily for irritable bowel syndrome. - Consider counseling for anxiety and stress management. - Refill diazepam prescription and consider sleep hygiene practices. - Continue using CPAP machine for sleep apnea. - Wear compression stockings for varicose veins. - RTO in a few weeks after i review your medical records Consent Patient was informed and verbally consented to the use of an ambient scribe for clinic note documentation during this visit. Total time spent caring for the patient today was 60 minutes. This includes time spent before the visit reviewing the chart, time spent during the visit, and time spent after the visit on documentation, reviewing laboratory results, diagnostic imaging, medications, performing a medically necessary evaluation, counseling on diagnoses, care coordination, ordering appropriate tests, ordering appropriate medications, review of tests performed by other providers, reporting test results with the patient, communication with other healthcare providers. [facility] Medical History (Updated 05/18/25 @ 15:02 by Lyubov Stoddard, PMP CERTIFIED PROJECT MANAGER-) Abdominal tumor Tumor IBS (irritable bowel syndrome) Anxiety Raynaud disease Kidney stone Celiac disease Thyroid disease Surgical History (Updated 05/18/25 @ 11:58 by Ana Landers MA) H/O abdominal surgery H/O: hysterectomy H/O bilateral oophorectomy Hx of tonsillectomy Family History (Updated 05/18/25 @ 12:00 by Ana Landers MA) Mother Cardiovascular disease Breast cancer Malignant melanoma Social History (Updated 05/18/25 @ 11:01 by Ana Landers MA) Housing: House Alcohol intake: current Patient Tobacco Use Status: Never used Tobacco e-Cigarette/Vaping Use: Never Used Second Hand Smoke Exposure: No service: No Current occupational status: employed Current occupation: [employer] Current occupational exposures/hazards: No Cognitive needs: No Hearing needs: No Vision needs: No Questionnaire PHQ-9 Over the last 2 weeks, how often have you been bothered by any of the following problems? 1. Little interest or pleasure in doing things: several days 2. Feeling down, depressed, or hopeless: nearly every day 3. Trouble falling or staying asleep, or sleeping too much: nearly every day 4. Feeling tired or having little energy: not at all 5. Poor appetite or overeating: not at all 6. Feeling bad about yourself - or that you are a failure or have let yourself or your family down: several days 7. Trouble concentrating on things, such as reading the newspaper or watching television: not at all 8. Moving or speaking so slowly that other people could have noticed. Or the opposite - being so fidgety or restless that you have been moving around a lot more than usual: not at all 9. Thoughts that you would be better off or of hurting yourself in some way: not at all Total score: 8 Depression Screening Interpretation: Positive Depression Screening Follow-up: Existing condition and In treatment Depression Screening Done: Yes 05974 - PHQ-9 Billing: Yes Source: Developed by Drs. Jairo Altman, Wanda Ocampo, Gerard Reddy and colleagues, with an educational gilmer from [employer] Thrive Questionnaire Date Thrive assessed: 05/18/25 What is your living situation today?: I have a steady place to live Within the past 12 months, did the food you bought not last and you didn't have the money to get more?: Often true Within the past 12 months, did you worry whether your food would run out before you got money to buy more?: Often true Do you have trouble paying for medicines?: No Do you have trouble getting transportation to medical appointments?: No Do you have trouble paying your heating and electricity bill?: No Do you have trouble taking care of your child, family member or friend?: No Do you have trouble with day-to-day activities such as bathing, preparing meals, shopping, managing finances, etc.?: No Are you currently unemployed and looking for a job?: No Are you interested in more education?: No Please select the resources that you would like help with: None Currently or been in a relationship where the following occur: No concerns reported THRIVE Score: 2 AUDIT C Alcohol Use Questionnaire (AUDIT-C) 1. How often do you have a drink containing alcohol?: 4 or more times a week 2. How many drinks containing alcohol do you have on a typical day when you are drinking?: 1 or 2 3. How often do you have six or more drinks on one occasion?: Never Total Score: 4 Score Reviewed/Action Taken: Yes DARLENE-7 AMB Questionnaire DARLENE-7 Date DARLENE - 7 assessed: 05/18/25 Feeling nervous, anxious, or on edge: 2 = More than half the days Not being able to stop or control worryin = Not at all Worrying too much about different things: 0 = Not at all Trouble relaxin = Not at all Being so restless that it is hard to sit still: 0 = Not at all Becoming easily annoyed or irritable: 1 = Several days Feeling afraid as if something awful might happen: 0 = Not at all Total DARLENE-7 score (0-4 normal; 5-9 mild; 10-14 moderate; 15-21 severe): 3 Source: Developed by Drs. Jairo Altman, Wanda Ocampo, Gerard Reddy and colleagues, with an educational gilmer from [employer] DARLENE-7 Assessment Billing DARLENE-7 Assessment Tool: DARLENE-7 Assessment 43643 Physical exam (Primary Care) Vital Signs: Last Vital Signs Temp 98.1 F 05/18/25 11:06 Pulse 59 05/18/25 11:06 BP 102/72 05/18/25 11:06 Pulse Ox 98 05/18/25 11:06 Oxygen Delivery Method Room Air 05/18/25 11:06 BMI result Body Mass Index 20.9 Tobacco/Smoking Status: Tobacco use Status Tobacco use date assessed 05/18/25 05/18/25 10:49 Patient Tobacco Use Status Never used Tobacco 05/18/25 11:01 e-Cigarette/Vaping Use Never Used 05/18/25 11:10 PHQ-9: PHQ-9 Score PHQ-9: Total score 8 05/18/25 14:55 Depression Screening Interpretation: Positive Depression Screening Follow-up: Existing condition and In treatment Thrive Assessment: Date of Thrive Assessment Date Thrive assessed 05/18/25 05/18/25 11:10 Currently or been in a relationship where the following occur: No concerns reported Coding Level of Care Code New Pt Level 5 (72559) Complex EM visit Add On G2211 Diagnoses Encounter to establish care Z76.89 Acquired hypothyroidism E03.9 Hypothyroidism type: acquired 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 DARLENE (generalized anxiety disorder) F41.1 EDWARDO on CPAP G47.33 Seasonal allergies J30.2 Asymptomatic varicose veins of both lower extremities I83.93 Varicose vein complication: asymptomatic Additional Codes DARLENE-7 Assessment Billing - DARLENE-7 Assessment Tool: DARLENE-7 Assessment 35466 ([id number]) PHQ-9 - 16392 - PHQ-9 Billing: Yes ([id number]) Assessment & Plan Assessment & Plan (1) Encounter to establish care: Code(s): Z76.89 - Persons encountering health services in other specified circumstances (2) Hypothyroid: Code(s): E03.9 - Hypothyroidism, unspecified Category: Medical Qualifiers: Hypothyroidism type: acquired Qualified Code(s): E03.9 - Hypothyroidism, unspecified (3) Pancreatic alpha-amylase deficiency: Code(s): 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.89 - Other specified disorders of carbohydrate metabolism Category: Medical (4) DARLENE (generalized anxiety disorder): Code(s): F41.1 - Generalized anxiety disorder Category: Medical (5) EDWARDO on CPAP: Comment: APRIA Code(s): G47.33 - Obstructive sleep apnea (adult) (pediatric) Category: Medical (6) Seasonal allergies: Code(s): J30.2 - Other seasonal allergic rhinitis Category: Medical (7) Varicose veins of both lower extremities: Code(s): I83.93 - Asymptomatic varicose veins of bilateral lower extremities Category: Medical Qualifiers: Varicose vein complication: asymptomatic Qualified Code(s): I83.93 - Asymptomatic varicose veins of bilateral lower extremities Plan . Orders: Orders Comprehensive Met. Panel Today E03.9 - Hypothyroidism, unspecified, E74.89 - Other specified disorders of carbohydrate metabolism Ferritin Today E03.9 - Hypothyroidism, unspecified, E74.89 - Other specified disorders of carbohydrate metabolism Microalbumin, Random (w Creat) Today E03.9 - Hypothyroidism, unspecified, E74.89 - Other specified disorders of carbohydrate metabolism Vitamin B12 and Folate Today E03.9 - Hypothyroidism, unspecified, E74.89 - Other specified disorders of carbohydrate metabolism Vitamin D 25-OH Total Today E03.9 - Hypothyroidism, unspecified, E74.89 - Other specified disorders of carbohydrate metabolism Complete Blood Count no Diff Today E03.9 - Hypothyroidism, unspecified, E74.89 - Other specified disorders of carbohydrate metabolism IRON PROFILE Today E03.9 - Hypothyroidism, unspecified, E74.89 - Other specified disorders of carbohydrate metabolism TSH reflex Free T4 Today E03.9 - Hypothyroidism, unspecified, E74.89 - Other specified disorders of carbohydrate metabolism Lipid Panel Today E03.9 - Hypothyroidism, unspecified, E74.89 - Other specified disorders of carbohydrate metabolism Medications: New polyethylene glycol 3350 (Miralax) 17 grams PO DAILY fluticasone propionate 50 mcg/actuation 2 sprays intranasal BID 48 grams 2RF amlodipine 5 mg PO DAILY 90 tabs 2RF Changed From diazepam 5 mg PO BEDTIME PRN To diazepam 5 mg PO BEDTIME 30 tabs 0RF
--- OUTSIDE RECORDS SUMMARY | 2025-05-18 11:04 | XMS_ITS | Patient Health Record ---
Author Organization [facility]ette juan luis Borrero Address [address] [place], [place] [address] Care Team Providers Care Spool Tender Name Role Phone Jennie AQUINO, Danilo Primary Care Provider Miguel Angel Zee Unavailable [phone] Allergies Allergen (clinical drug ingredient) Drug/Non Drug Allergy documented on EMR Reaction Allergy Type Onset Date Status Gluten gluten (uncoded) Unknown Allergy Act rik paroxetine Paroxetine HCl anxiety Drug Allergy A ctive Reason For Referral No Information Medications Medication SIG (Take, Route, Fr equency, Duration) Notes Start Date End Date Status diazePAM 5 MG 1 tablet as needed O rally Twice a day Active Premarin 0.625 MG 1 tablet Orally Kaleigh y for Three Weeks, 1 Week off for 30 day(s) Active Synthroid 112 MCG 1 tablet on an empty stomach in the morning Orally Once a day for 30 day(s) Active Problems Problem Type SNOMED Code ICD Code Onset Dates Problem Status W/U Status Risk Notes Problem Verruca plantaris (10481667) 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 confirmed Problem Neuralgia - Neuritis (729.2) Active confirmed Problem Congenital pes planus (56625824) Flat Foot, 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 confirmed Plan Of Treatment Pending Test Test Name Order Date X ray : Foot, right 2V 11/16/2012 [id number] Destruction, 1-14 03/22/2013 [id number] Destruction, 1-14 11/16/2012 Insurance Providers Payer Name Payer Address Payer Phone Subscriber Number Group Number Insured Name Patient Relationship to Insured Coverage Start Date Coverage End Date Medicare National Govt Svcs Inc [address] [place] [address] [phone] [id number] Angeli Vyas Self - patient is the insured [address] [place] [address] [address] [place] [address] [phone] [id number] Angeli Vyas Self - patient is the insured Medical (General) History Medical History History ICD Code back, hip, knee pain cancer headaches/migraines neuropathy thyroid disorder warts Surgical History Surgery Date(Month/Year) tonsillectomy ovarian surgery 1961 abdominal surgery 2005 reconstructive surgery 2009
[2025-05-18 11:06] VITALS: BP 102/72; PULSE 59; TEMP 36.7; O2SAT 98; BMI 20.9
== END 2025-05-18 11:43 | disposition home or self-care (01) ==
LOC: HO.HMCFM 10:39
PROVIDERS: PCP Nurse Practitioner Family; Visit Provider Nurse Practitioner Family
DX: Z76.89 Persons encountering health services in other specified circumstances (principal); E03.9 Hypothyroidism, unspecified; E74.89 Other specified disorders of carbohydrate metabolism; F41.1 Generalized anxiety disorder; G47.33 Obstructive sleep apnea (adult) (pediatric); J30.2 Other seasonal allergic rhinitis; I83.93 Asymptomatic varicose veins of bilateral lower extremities

== ENCOUNTER → 2025-05-18 10:38 | Outpatient (BNVA) | payer OTHER, SELFPAY | PROVIDERS: PCP Nurse Practitioner Family; Visit Provider Nurse Practitioner Family | DX: Z76.89 Persons encountering health services in other specified circumstances (principal); E03.9 Hypothyroidism, unspecified; E74.89 Other specified disorders of carbohydrate metabolism; F41.1 Generalized anxiety disorder; G47.33 Obstructive sleep apnea (adult) (pediatric); J30.2 Other seasonal allergic rhinitis; I83.93 Asymptomatic varicose veins of bilateral lower extremities; Z99.89 Dependence on other enabling machines and devices; Z13.31 Encounter for screening for depression; Z13.30 Encounter for screening examination for mental health and behavioral disorders, unspecified | CPT/HCPCS: 96127 ==

== ENCOUNTER 2025-05-18 11:45 | Outpatient (REF) | payer OTHER, SELFPAY ==
[2025-05-18 14:37] LABS: Hematocrit 38.9 % (37.0-47.0); Hemoglobin 12.8 g/dl (12.0-16.0); Mean Corpuscular HGB Conc 32.9 g/dl (31.0-35.0); Mean Corpuscular Hemoglobin 31.8 pg (27.0-33.0); Mean Corpuscular Volume 96.5 fL (80.0-98.0); Mean Platelet Volume 10.1 fL (9.4-12.3); Platelet Count 255 X10*3/uL (160-400); Red Blood Count 4.03 X10*6/uL (4.20-5.50); Red Cell Distribution Width 13.5 % (11.0-16.0)
[2025-05-18 15:08] LABS: Alanine Aminotransferase 18 U/L (0-31); Albumin Level 4.7 g/dL (3.5-5.0); Alkaline Phosphatase 52 U/L (39-117); Anion Gap 12 (12-20); Aspartate Amino Transferase 29 U/L (5-31); Bilirubin Total 0.8 mg/dL (0.0-1.0); Blood Urea Nitrogen 17 mg/dL (9-16); Calcium 9.5 mg/dL (8.4-10.2); Carbon Dioxide 27 mmol/L (22-29); Chloride 102 mmol/L (96-108); Cholesterol 199 mg/dL (<200); Estimated Glomerular Filt Rate > 60; Glucose Random 88 mg/dL (60-115); HDL Cholesterol 55 mg/dL (>40); Iron 103 mcg/dL (30-160); LDL Cholesterol Calculated 131 mg/dL (<100); Percent Iron Saturation 35 % (15-50); Potassium 4.1 mmol/L (3.3-5.1); Sodium 137 mmol/L (135-145); Total Iron Binding Capacity 298 mcg/dL (228-428); Total Protein 6.9 g/dL (6.5-8.0); Triglycerides 67 mg/dL (<150); Unsaturated Iron Binding 195 ug/dL
[2025-05-18 15:25] LABS: Ferritin 78 ng/mL (10-250); TSH reflex Free T4 4.91 uIU/mL (0.32-4.0); Vitamin D 25-OH Total 87.7 ng/mL (>30)
[2025-05-18 15:26] LABS: Folate 15.6 ng/mL (> or = 4.0); Vitamin B12 1294 pg/mL (200-900)
[2025-05-18 16:05] LABS: Free T4 (Free Thyroxine) 1.15 ng/dL (0.71-1.85)
[2025-05-18 18:00] LABS: Creatinine Urine 39.05 mg/dL; Microalbumin Urine < 5.0 mg/L
== END 2025-05-18 11:46 | disposition home or self-care (01) ==
LOC: HO.WFDLDS 11:45
PROVIDERS: Visit Provider Nurse Practitioner Family
DX: E74.89 Other specified disorders of carbohydrate metabolism (principal); E03.9 Hypothyroidism, unspecified
CPT/HCPCS: 36415; 80053; 80061; 82306; 82570; 82607; 82728; 82746; 83540; 84439; 84443; 85027

== ENCOUNTER 2025-07-03 12:31 | Outpatient (AMB) | payer OTHER, SELFPAY ==
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
[2025-07-03 12:36] VITALS: BP 130/64; PULSE 57; RESP 12; TEMP 36.6; O2SAT 97; BMI 21.7
--- OUTSIDE RECORDS SUMMARY | 2025-07-03 13:05 | XMS_ITS | Patient Health Record ---
Author Organization [facility] juan luis Borrero Address [address] [place], [place] [address] Care Team Providers Care Surgical Rn Name Role Phone Jennie AQUINO, Danilo Primary Care Provider Miguel Angel Zee Unavailable [phone] Allergies Allergen (clinical drug ingredient) Drug/Non Drug [...] Kaleigh y for Three Weeks, 1 Week off; Duration: 30 day(s) Active Synthroid 112 MCG 1 tablet on an empty stomach in the morning Orally Once a day; Duration: 30 day(s) Active Problems Problem Type SNOMED Code ICD Code Onset Dates Problem Status W/U Status Risk Notes Problem Verruca plantaris (85359796) 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 confirmed Problem Neuralgia - Neuritis (729.2) Active confirmed Problem Congenital pes planus (09616039) Flat Foot, 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 confirmed Plan Of Treatment Pending Test Test Name Order Date X ray : Foot, right 2V 11/16/2012 [id number] Destruction, 1-14 03/22/2013 [id number] Destruction, -14 11/16/2012 Insurance Providers Payer Name Payer Address Payer Phone Subscriber Number Group Number Insured Name Patient Relationship to Insured Coverage Start Date Coverage End Date Medicare National Govt Svcs Inc [address] [place] [phone] [id number] LilliamJairoa Self - patient is the insured [address] [place] [address] [address] [place] [address] [phone] [id number] Angeli Vyas Self - patient is the insured Medical (General) History Medical History History ICD Code back, hip, knee pain cancer headaches/migraines neuropathy thyroid disorder warts Surgical History Surgery Date(Month/Year) tonsillectomy ovarian surgery 1961 abdominal surgery 2005 reconstructive surgery 2008
== END 2025-07-03 13:20 | disposition home or self-care (01) ==
LOC: HO.HMCFM 12:32
PROVIDERS: PCP Nurse Practitioner Family; Visit Provider Nurse Practitioner Family
DX: E03.9 Hypothyroidism, unspecified (principal); F41.1 Generalized anxiety disorder; K90.0 Celiac disease; Z92.89 Personal history of other medical treatment; Z78.0 Asymptomatic menopausal state; Z82.3 Family history of stroke; Z80.8 Family history of malignant neoplasm of other organs or systems; Z85.43 Personal history of malignant neoplasm of ovary; Z80.3 Family history of malignant neoplasm of breast; Z86.2 Personal history of diseases of the blood and blood-forming organs and certain disorders involving the immune mechanism; Z86.39 Personal history of other endocrine, nutritional and metabolic disease; Z79.899 Other long term (current) drug therapy

== ENCOUNTER 2025-08-13 11:16 | Outpatient (REF) | payer OTHER, SELFPAY | END 2025-08-13 11:17 | disposition home or self-care (01) | LOC: HO.HMGCLDS 11:16 | PROVIDERS: PCP Nurse Practitioner Family; Visit Provider Nurse Practitioner Family | DX: E03.9 Hypothyroidism, unspecified (principal) | CPT/HCPCS: 36415; 84443 ==

== ENCOUNTER 2025-10-22 12:59 | Outpatient (REF) | payer OTHER, SELFPAY ==
[2025-10-22 19:11] LABS: Cholesterol 190 mg/dL (<200); HDL Cholesterol 55 mg/dL (>40); Triglycerides 70 mg/dL (<150)
== END 2025-10-22 13:00 | disposition home or self-care (01) ==
LOC: HO.WFDLDS 12:59
PROVIDERS: PCP Nurse Practitioner Family; Visit Provider Nurse Practitioner Family
DX: Z00.00 Encounter for general adult medical examination without abnormal findings (principal); Z71.89 Other specified counseling; M21.611 Bunion of right foot; R94.31 Abnormal electrocardiogram [ECG] [EKG]; K90.0 Celiac disease; K58.9 Irritable bowel syndrome, unspecified; E74.89 Other specified disorders of carbohydrate metabolism; E03.9 Hypothyroidism, unspecified; Z12.11 Encounter for screening for malignant neoplasm of colon; Z79.899 Other long term (current) drug therapy
CPT/HCPCS: 36415; 69209; 80061; 83036; 84443; 90471; 90656; 96127

== ENCOUNTER 2025-10-22 12:59 | Outpatient (AMB) | payer OTHER, SELFPAY ==
--- NOTE | 2025-10-22 13:04 | A.OFFVIS_ITS ---
Intake Vital Signs 10/22/25 13:31 Height 5 ft 3 in Weight 123 lb BMI 21.8 BP 99/66 Blood Pressure Location Lt brachial Position Sitting Respiration 12 Pulse 70 Pulse Source Pulse Oximeter Temp 97.4 F Temp Source Oral Pulse Oximetry (%) 98 Oxygen Delivery Method Room Air Intake Visit Reasons: 3 months sawv 30 MIN Intake Note: AWV and patient needs refill on meds. Box [place] Required: No Allergies gluten (GLUTEN) Allergy (Severe, Verified 10/22/25 13:58) DIARRHEA perfume (PERFUME) Allergy (Mild, Verified 10/22/25 13:58) DIFFICULTY BREATHING paroxetine (From PAXIL) Allergy (Unknown, Verified 10/22/25 13:58) UNKNOWN SMOKE Allergy (Mild, Uncoded 10/22/25 13:58) DIFFICULTY BREATHING Medication List - Last Reconciled 10/22/25 by Lyubov Stoddard, [facility]- amlodipine 5 mg PO DAILY clobetasol 0.05% topical diazepam 5 mg PO BEDTIME estradiol (Lyllana) patches transdermal fluticasone propionate 50 mcg/actuation 2 sprays intranasal BID levothyroxine (Levo-T) 112 mcg PO DAILY keprdz-bpufsbmg-mfktqxb (pork) 3,000-10,000 -14,000-unit (Zenpep) 1 cap PO QID 30 days polyethylene glycol 3350 (Miralax) 17 grams PO DAILY Do you need a note to return to daycare/school/sports/work: No HPI HPI Comments History of Present Illness Details Julia Here today for AWV. The Medicare Annual Wellness Visit (AWV) is a yearly appointment with a health professional to identify health risks and help reduce them and to create or update a personalized prevention plan. During a Medicare AWV, health professionals should also review any current opioid prescriptions, detect any cognitive impairment, and establish or update medical and family history. 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 Colon: 10/24/2018 wnl, [address] [facility] [place] dr ruiz (report requested) repeat 5 years (2027) Mammo 12/2024 wnl DEXA 06/08/2018, update ordered today PAP 2021 Vaccines: Tdap 2022, Flu 10/22/25, Shingles to be done at pharmacy; Pneumonia vaccines needs #20 AAA screen: NA EKG: done today shows NSR with negative p waves in lead II, ? ecoptic atrial rythym otherwise wnl [place] of Care: GI - Dr Aline Srivastava [facility] Visual Acuity: wears glasses, last exam 10/02/25 Hearing Screening: none ACP: HCP Y (), 5 wishes and MOLST provided today along w/ edu May have a DNR @ home. Dietary/Nutrition/Exercise Edu provided: Y During the course of the visit the patient was educated and counseled about appropriate screening and preventative services. Patient instructions were provided to the patient in written or electronic format. I have reviewed and verified the above information. History of Present Illness The patient is a 79 year old individual presenting for an annual Medicare wellness exam. Pancreatic Exocrine Insufficiency: - The patient has been having difficulty with prescriptions for Zenpep 25,000- 79,000 units, as this specific formulation is not in the clinic's electronic medical record system. - The patient takes one capsule four charmaine es a day. - The patient ran out of medication and the pharmacy provided a small supply of six pills to cover the immediate need. Hypothyroidism: - The patient reports feeling better sin ce taking the prescribed dose of levothyroxine 112 mcg daily without skipping doses - Previous thyroid lab numbers were note d to be a little high. Generalized Anxiety Disorder and Insomnia: - The patient reports waking up around 3 a.m., which is often associated with racing thoughts and stress. - Although some stressors have been chaparro viated, ongoing issues with a - powerful person - continue to contribute to stress. - The patient uses a noise machine to ai d with sleep. - The patient takes diazepam every night . Ectopic Atrial Rhythm, Suspected: - An in-office EKG showed negative P wav es in lead II, raising suspicion for an ectopic atrial rhythm. - The quick service technician had difficulty securing the EKG leads due to skin lotion, which may have contributed to the finding. - The patient reports occasional, brief palpitations that feel like having had too much caffeine, which may be related to stress. - The patient denies any chest pain. Bunion R great toe: - The patient has a longstanding tender bump on the foot, associated with a bunion and wearing tight organ shoes. - It has become painful on palpation. - The patient has switched from tight fe male-style organ shoes to a more forgiving male style. - The patient is not currently followed by a division controller. Hyperlipidemia: - A lab test from April 2025 showed an LD L cholesterol level of 131 mg/dL. - The plan at that time was to monitor a nd re-evaluate. Past Medical History - Hyperthyroidism - Raynaud's phenomenon - Environmental allergies - Pancreatic exocrine insufficiency - Celiac disease - Irritable bowel syndrome (IBS) - Generalized anxiety disorder (DARLENE) - Ovarian cancer - Migraine headaches - Anemia - Venous insufficiency - Vitamin D deficiency Family History - Mother: History of breast cancer. - Brother: History of melanoma. Social History - Functional Status: Independent with ac tivities of daily living and drives own car without difficulty. - Exercise: The patient engages in regul ar exercise. - Diet: Reports not using a lot of sugar s and avoids processed foods. - Substance Use: Does not drink alcohol. - Family status: The patient is ; the patient's is the designated healthcare proxy. Health Maintenance - Colonoscopy: Last performed in 2022, w ith next one due in 2027. - Mammogram: Due in December 2024. - Bone Density Scan: Overdue; an order h as been placed. - Diabetes Screen: A1c today was 4.9%. - Vaccinations: Influenza vaccine will b e administered today. The patient has received a COVID vaccine. The patient has not received a shingles or the newer pneumonia vaccine. - Advance Care Planning: The patient has a healthcare proxy form and a kr-euw-jliicjhxptb order, but does not have copies. The patient was provided with a MOLST form and a Five Wishes booklet to complete. - Supplements: Reports taking vitamin D, iron, magnesium glycinate, glucosamine/chondroitin, and vision supplements. Review of Systems - Neurological: Reports trouble with nam es and occasionally misplacing items, attributes it to distraction. Denies getting lost while driving or forgetting important information. - Cardiovascular: Reports occasional, br ief palpitations. Denies chest pain or dizziness upon standing. - Psychiatric: Reports difficulty sleepi ng, waking at 3 a.m. with racing thoughts related to stress. - Musculoskeletal: Reports a painful bum p on the foot. - HEENT: Denies hearing problems. - General: Denies falls. - Skin: Reports very dry skin, particula rly in the winter. Physical Exam General: Well developed, well nourished, in no acute distress. Head: Normocephalic, atraumatic. Eyes: Pupils are equal, round and reactive to light and accommodation. Conjunctivae are clear. Scleras nonicteric bilat. Vision grossly normal. Ears: TMs clear AU, EACS WNL. Some wax noted in the left ear unable to fully lavage. Will have her do debrox and RTO for lavage. Nose: Patent, without discharge. Neck: No carotid bruit bilat. Supple, no adenopathy or thyromegaly. Breast: Edu on SBE Lungs: Clear to auscultation bilaterally. No rales, rhonchi or wheeze noted. Good air flow in all seay. Heart: Regular rate and rhythm. No murmurs, click, rubs or gallops are noted. EKG done today shows normal sinus rhythm with negative P waves and lead 2, question of an ectopic atrial rhythm, otherwise within normal limits. Abdomen: Bowel sounds present in all quadrants. The abdomen is soft, nontender, with no masses or organomegaly noted. No hernias are noted. : Deferred. Reviewed recommendations for routine COOPERER Pulses: Peripheral pulses are equal and palpable bilaterally. Extremities: No clubbing, cyanosis nor edema is noted. Nonpitting edema LLE, Swelling in the Left leg, (baseline since surgery, especially in the summertime.) Bunion R great toe w/ callous; cyst L wrist. Neurologic: Gait and station normal. Cranial Nerves 2-12 intact. Motor strength grossly symmetrical and intact. No sensory loss. Balance normal. Skin: No rashes, ulcers, or lesions noted. Turgor is good. Skin color is good. Hair and nails are without abnormalities. Noted dry skin. Psych: Normal eye contact, affect and mood appropriate, and normal interactions. Patient is alert and appropriate to context. Reports stress and difficulty sleeping, using Diazepam nightly. Results - EKG (In-office): Normal sinus rhythm w ith negative P waves in lead II, questioning ectopic atrial rhythm. - Labs (Today): A1c: 4.9%. - Labs (April 2025): LDL: 131 mg/dL. Medical Decision Making The patient is a 79-year-old individual presenting for an annual Medicare wellness exam with several items for review and management. The prescription for Zenpep presented a challenge due to the specific formulation not being in the EMR system; I have sent a prescription to the patient's preferred pharmacy with a note and will follow up with a verbal order if needed to prevent a lapse in therapy. The in-office EKG showed negative P waves in lead II, which could represent an ectopic atrial rhythm. However, given the artifact from poor lead contact due to skin lotion and the patient's report of only occasional, brief palpitations without chest pain, the most appropriate next step is a repeat outpatient EKG under controlled conditions to verify the finding before considering further cardiac workup like an echocardiogram or Holter monitor. The patient has a tender lesion on the foot associated with a bunion, likely from chronic pressure. To prevent complications, a referral to podiatry is indicated for definitive evaluation and potential intervention. The patient's LDL was elevated six months ago; given the patient's controlled diet, a genetic component is likely. We will repeat the lipid panel and a TSH today, as the patient's thyroid function has now been stabilized with improved medication adherence, which could influence cholesterol levels. Health maintenance includes ordering an overdue bone density scan, which can be coordinated with the upcoming mammogram. A referral to gastroenterology is also placed to establish longitudinal care for the patient's pancreatic insufficiency and ensure timely follow-up for the next colonoscopy. Vaccinations were discussed, and the patient will receive the influenza shot today, with recommendations to obtain COVID-19, shingles (non-live virus), and pneumonia vaccines at the pharmacy. The patient's diazepam for anxiety and insomnia will be renewed. Plan 1. Annual Medicare Wellness Exam - Labs: Ordered lipid panel and TSH phillip blanchard for today. - Immunizations: Administered influenza vaccine in office. Advised the patient to obtain COVID-19, Shingrix (non-live virus), and PCV20 (pneumonia) vaccines at a pharmacy. - Screening: Placed order for a bone den sity scan, to be scheduled with the patient's mammogram due in December 2024. - Advance Care Planning: Provided MOLST form and Five Wishes booklet for the patient to review and complete for signature at a future visit. - Follow-up: Scheduled for a follow-up v isit in 6 months with labs prior. 2. Pancreatic Exocrine Insufficiency - Medications: Electronically sent a 90- day prescription for Zenpep 25,000 units to [facility] with refills. Will call in a verbal order if the electronic script is rejected. - Consultation: Placed a referral to [place] [facility] for specialty management. 3. Ectopic Atrial Rhythm, Suspected - Diagnostic Testing: Ordered an outpati ent EKG to be performed at the cardiology lab to obtain a higher quality tracing and confirm or rule out the suspected rhythm abnormality noted on the in-office EKG. - Patient Counseling: Advised the patien t that the initial finding may be an artifact due to skin lotion. Further evaluation will be pursued if the repeat EKG is abnormal. 4. Bunion R great toe - Consultation: Placed a referral to Pod iatry for evaluation and management of the painful bunion and associated lesion. 5. Generalized Anxiety Disorder - Medications: Renewed prescription for diazepam. 6. Allergic Rhinitis - Medications: Continue fluticasone nasa l spray at the current dose of two sprays per nostril twice daily, as the patient reports good efficacy. 7. Cerumen Impaction - Procedure: Arranged for nurse to perfo rm an ear lavage on the left ear in the office today. Not successful, debrox and RTO for lavage. Patient Instructions - You will receive a flu shot in the off ice today. After your shot, please stop at the front desk auxiliary to be directed to the lab for blood work. - Please call the main hospital number t o schedule your outpatient EKG. Ensure your skin is clean and free of any lotion for the test. - Your prescription for Zenpep has been sent to [facility]. Please check with them on its status. If there are any problems, they will contact our office. - The nurse will be in shortly to flush the wax from your left ear. - You will receive calls to schedule andria ointments with podiatry (for your foot) and gastroenterology (for your stomach condition). - When the imaging center calls to sched ule your bone density scan, let them know you also need a mammogram so they can be done at the same time. - It is recommended that you get your [place] VID-19, pneumonia, and shingles vaccines. These can be done at the pharmacy. Be sure to ask for the non-live version of the shingles vaccine. - Please review the advance directive pa perwork (MOLST and Five Wishes forms) an d bring them with you to your next visit. - We have renewed your prescription for diazepam. - Please schedule a follow-up visit in a bout six months with labs. Sooner PRN Consent The patient provided verbal consent for the physical examination, influenza vaccination, lab draws, and ear lavage after discussion. The patient was provided with advance directive paperwork (MOLST, Five Wishes) to review at home and bring to a future appointment for co-signature, at which time formal consent for those documents will be documented. Patient was informed and verbally consented to the use of an ambient scribe for clinic note documentation during this visit. An additional 30 minutes was spent addressing the problem(s) noted at todays visit. This includes time spent before the visit reviewing the chart, time spent during the visit, and time spent after the visit on documentation reviewing laboratory results, diagnostic imaging, medications, performing a medically necessary evaluation, counseling on diagnoses, care coordination, ordering appropriate tests, ordering appropriate medications, review of tests performed by other providers, reporting test results with the patient, communication with other healthcare providers. [facility] Medical History (Updated 10/22/25 @ 15:26 by ANTONY Delgado-CHUNG) Abdominal tumor Anxiety Celiac disease IBS (irritable bowel syndrome) Kidney stone Raynaud disease Thyroid disease Tumor Surgical History (Updated 07/03/25 @ 12:58 by ANTONY Delgado-CHUNG) H/O abdominal surgery H/O bilateral oophorectomy H/O: hysterectomy History of colonoscopy (~2022) Hx of tonsillectomy Family History (Updated 05/18/25 @ 12:00 by Ana Landers MA) Mother Cardiovascular disease Breast cancer Malignant melanoma Social History (Updated 05/18/25 @ 11:01 by Ana Landers MA) Housing: House Alcohol intake: current Patient Tobacco Use Status: Never used Tobacco e-Cigarette/Vaping Use: Never Used Second Hand Smoke Exposure: No service: No Current occupational status: employed Current occupation: [employer] Current occupational exposures/hazards: No Cognitive needs: No Hearing needs: No Vision needs: No Questionnaire Medicare Wellness Checkup [age] What gender do you identify with?: female During the past 4 weeks, how much have you been bothered by emotional problems such as feeling anxious, depressed, irritable, sad or downhearted, and blue?: not at all During the past 4 weeks, has your physical & emotional health limited your social activities with family, friends, neighbors, or groups?: slightly During the past 4 weeks, how much bodily pain have you generally had?: no pain During the past 4 weeks, was someone available to help you if you needed & wanted help?: yes, as much as I wanted During the past 4 weeks, what was the hardest physical activity you could do for at least 2 minutes?: moderate Can you get to places out of walking distance without help? (For eg., can you travel alone on buses, taxis or drive your car?): Yes Can you go shopping for groceries or clothes without someone's help?: Yes Can you prepare your own meals?: Yes Can you do your housework without help?: Yes Because of any health problems, do you need the help of another person with your personal care needs such as eating, bathing, dressing or getting around the house?: No Can you handle your own money without help?: Yes During the past 4 weeks, how would you rate your health in general?: very good During the past 4 weeks how have things been going for you?: pretty well Are you having difficulties driving your car?: no Do you always fasten your seat belt when you are in a car?: yes, usually During past 4 weeks, have you been bothered by the following: never: Falling or dizzy when standing up, Sexual problems?, Trouble eating well?, Teeth or denture problems?, Problems using the telephone? and Tiredness or fatigue? Have you fallen 2 or more times in the past year?: No Are you afraid of falling?: No Are you a smoker?: no During the past 4 weeks, how many drinks of wine, beer, or other alcoholic beverages did you have?: no alcohol at all Do you exercise for about 20 minutes 3 or more times a week?: yes, most of the time Have you been given information to help with the following?: no: Hazards in your house that might hurt you? and no: Keeping track of your medications? How often do you have trouble taking medicines the way you have been told to take them?: I always take medicine as prescribed How confident are you that you can control & manage most of your health problems?: very confident What is your race?: White Activity of Daily Living Bathing - sponge bath, tub bath or shower: receives no assistance (gets in/out by self, if usual bathing means Dressing - getting clothes from closets & drawers, including inner/outer garments & fasteners.: gets clothes & gets completely dressed without help Toileting - going to the 'toilet room' for urine/bowel elimination & cleaning self/arranging clothes: goes to toilet room, cleans self, arranges clothes without help Transfer: moves in & out of bed and chair without help (may use support object) Continence: controls urination/bowel movements completely by self Feeding: feeds self without help Total Score: 0 Information obtained from: patient Using telephone: independent Traveling: independent Shopping: independent Preparing meals: independent Housework: independent Taking medicine: independent Managing money: independent PHQ-9 Over the last 2 weeks, how often have you been bothered by any of the following problems? 1. Little interest or pleasure in doing things: not at all 2. Feeling down, depressed, or hopeless: not at all 3. Trouble falling or staying asleep, or sleeping too much: not at all 4. Feeling tired or having little energy: not at all 5. Poor appetite or overeating: not at all 6. Feeling bad about yourself - or that you are a failure or have let yourself or your family down: not at all 7. Trouble concentrating on things, such as reading the newspaper or watching television: not at all 8. Moving or speaking so slowly that other people could have noticed. Or the opposite - being so fidgety or restless that you have been moving around a lot more than usual: not at all 9. Thoughts that you would be better off or of hurting yourself in some way: not at all Total score: 0 Depression Screening Interpretation: Negative Depression Screening Done: Yes 72271 - PHQ-9 Billing: Yes Source: Developed by Drs. Jairo Altman, Wanda Ocampo, Gerard Reddy and colleagues, with an educational gilmer from [employer]. Physical Exam Vital Signs: Last Vital Signs Temp 97.4 F 10/22/25 13:31 Pulse 70 10/22/25 13:31 Resp 12 10/22/25 13:31 BP 99/66 10/22/25 13:31 Pulse Ox 98 10/22/25 13:31 Oxygen Delivery Method Room Air 10/22/25 13:31 BMI result Body Mass Index 21.8 Office Procedures Cerumen Removal From which ear canal was the cerumen removed: left Removal: irrigation Notes: patient tolerated procedure well and no complications [id number] Irrigation/Lavage EKG [id number], Complete Flu Questionnaire Does the patient have a severe egg allergy?: No Does the patient have severe life threatening allergies?: No Does the patient have a fever or illness today?: No Has the patient ever had Guillain-Spofford Syndrome?: No Has the patient ever had any past reaction to a flu shot?: No Vision Screening Right Eye: 20/20 Left Eye: 20/20 Bilateral: 20/25 Color: Pass Corrected: Pass (wearing glasses) 12129 - Vision Screening Results AMB Hemoglobin A1c AMB Hemoglobin A1c 4.9 % Last Edit by Roger Ramirez MA on 10/22/25 13:46 Immunizations Fluarix [id number] (PF) 45 mcg (15 mcg x 3)/0.5 mL IM syringe Performing Provider: LIMA Delgado Performing Location: [facility] Administered by: Mercedez Marie RN on 10/22/25 15:10 Dose Route Admin Location Dispensed Lot Number Expiration Date [facility] Inventory Technician 0.5 mL IM Right Deltoid 0.5 mL [id number] 05/28/26 [id number] [employer] VIS Given Date VIS Provided VIS Publication Date 10/22/25 Single Vaccine 24 Eligibility Eligibility Date Funding Source Not [facility] Eligible 10/22/25 Private Results Reviewed Results Reviewed: Laboratory Last Values Hgb A1c (Clinic) 4.9 % (4.0-6.0) 10/22/25 13:45 Assessment & Plan Assessment & Plan (1) Encounter for subsequent annual wellness visit (AWV) in Medicare patient: Onset Date: ~10/22/25 Code(s): Z00.00 - Encounter for general adult medical examination without abnormal findings (2) ACP (advance care planning): Onset Date: ~10/22/25 Code(s): Z71.89 - Other specified counseling (3) Bunion of great toe of right foot: Code(s): M21.611 - Bunion of right foot (4) Abnormal EKG: Code(s): R94.31 - Abnormal electrocardiogram [ECG] [EKG] (5) Celiac disease: Code(s): K90.0 - Celiac disease (6) IBS (irritable bowel syndrome): Code(s): K58.9 - Irritable bowel syndrome, unspecified (7) Pancreatic alpha-amylase deficiency: Code(s): E74.89 - Other specified disorders of carbohydrate metabolism (8) Hypothyroid: Code(s): E03.9 - Hypothyroidism, unspecified Qualifiers: Hypothyroidism type: acquired Qualified Code(s): E03.9 - Hyp othyroidism, unspecified (9) HLD (hyperlipidemia): Code(s): E78.5 - Hyperlipidemia, unspecified (10) Influenza vaccination administered at current visit: Onset Date: ~10/22/25 Code(s): Z23 - Encounter for immunization Plan . Orders: Orders ECG 12 lead EKG Today R94.31 - Abnormal electrocardiogram [ECG] [EKG] Influenza [id number] Immunization Today Z23 - Encounter for immunization AMB Hemoglobin A1c Today Z13.9 - Encounter for screening, unspecified MM tomosynthesis screening BI Today Z12.31 - Encounter for screening mammogram for malignant neoplasm of breast Lipid Panel Today E03.9 - Hypothyroidism, unspecified, E78.5 - Hyperlipidemia, unspecified TSH reflex Free T4 Today E03.9 - Hypothyroidism, unspecified, E78.5 - Hyperlipidemia, unspecified Referrals 2 Podiatry Referral M21.611 - Bunion of right foot Gastroenterology Referral E74.89 - Other specified disorders of carbohydrate metabolism, K58.9 - Irritable bowel syndrome, unspecified, K90.0 - Celiac disease, Z12.11 - Encounter for screening for malignant neoplasm of colon Medications: New fwpyzv-qcueajpx-hprsrcb (pork) 25,000-79,000- 105,000 unit (Zenpep) administer with meals and/or snacks 1 cap PO QID 360 caps 2RF 90 days Refilled diazepam 5 mg PO BEDTIME 30 tabs 2RF Discontinued wnpoxr-ntemazuk-dusqwgc (pork) 3,000-10,000 -14,000-unit (Zenpep) 4x's a day Discontinued Reason: Doctor's Order 1 cap PO QID 30 days 120 caps 0RF Patient Instructions: Health screenings for women You should visit your health care provider from time to time, even if you are healthy. The purpose of these visits is to: Screen for medical issues Assess your risk for future medical problems Encourage a healthy lifestyle Update vaccinations and other preventive care services Help you get to know your provider in case of an illness Information Even if you feel fine, you should still see your provider for regular checkups. These visits can help you avoid problems in the future. For example, the only way to find out if you have high blood pressure is to have it checked regularly. High blood sugar and high cholesterol levels also may not have any symptoms in the early stages. A simple blood test can check for these conditions. There are specific times when you should see your provider or receive specific health screenings. The [place] Preventive Services Task Force publishes a list of recommended screenings. Below are screening guidelines for women ages 18 to 39. BLOOD PRESSURE SCREENING Your blood pressure should be checked at least once every 3 to 5 years if: Your blood pressure is in the normal range (top number less than 120 mm Hg and bottom number less than 80 mm Hg) You don't have risk factors for high blood pressure Ask your provider if you need your blood pressure checked more often if: The top number is 120 to 129 mm Hg or the bottom number is 70 to 79 mm Hg You have diabetes, heart disease, kidney problems, are overweight, or have certain other health conditions You have a first-degree relative with high blood pressure You are Black You had high blood pressure during a If the top number is 130 mm Hg or greater or the bottom number is 80 mm Hg or greater, this is considered stage 1 hypertension. Schedule an appointment with your provider to learn how you can reduce your blood pressure. Watch for blood pressure screenings in your area. Ask your provider if you can stop in to have your blood pressure checked. BREAST CANCER SCREENING Experts do not agree about the benefits of breast self-exams in finding breast cancer or saving lives. Talk to your provider about what is best for you. A screening mammogram is not recommended for most women under age 40. Your provider may discuss and recommend mammograms, MRI scans, or ultrasounds if you have an increased risk for breast cancer, such as: A mother or sister who had breast cancer at a young age (most often starting screening earlier than the age the close relative was diagnosed) You carry a high-risk genetic marker CERVICAL CANCER SCREENING Cervical cancer screening should start at age 21 years unless your provider advises otherwise. After the first test: Women ages 21 through 29 should have a Pap test every 3 years. Exoprts do not agree on whether HPV testing is recommended for this age group. Women ages 30 through 65 should be screened with either a Pap test every 3 years or the HPV test every 5 years or both tests every 5 years (called cotesting ). Women who have been treated for precancer (cervical dysplasia) should continue to have Pap tests for 20 years after treatment or until age 65, whichever is longer. If you have had your uterus and cervix removed (total hysterectomy), and you have not been diagnosed with cervical cancer or precancer (high grade cervical neoplasia), you do not need cervical cancer screening. CHOLESTEROL SCREENING Cholesterol screening should begin at: Age 45 for women with no known risk factors for coronary heart disease Age 20 for women with known risk factors for coronary heart disease Repeat cholesterol screening should take place: Every 5 years for women with normal cholesterol levels More often if changes occur in lifestyle (including weight gain and diet) More often if you have diabetes, heart disease, kidney problems, or certain other conditions DIABETES SCREENING You should be screened for diabetes starting at age 35 and then repeated every 3 years if you have no risk factors for diabetes. Screening may need to start earlier and be repeated more often if you have other risk factors for diabetes, such as: You have a first degree relative with diabetes. You are overweight or have obesity. You have high blood pressure, prediabetes, or a history of heart disease. Screening for diabetes should be done if you are planning to become and you are overweight and have other risk factors such as high blood pressure. DENTAL EXAM Go to the dentist once or twice every year for an exam and cleaning. Your dentist will evaluate if you need more frequent visits. EYE EXAM Have an eye exam every 5 to 10 years before age 40. If you have vision problems, have an eye exam every 2 years or more often if recommended by your provider. You should have an eye exam that includes an examination of your retina (back of your eye) at least every year if you have diabetes. IMMUNIZATIONS Commonly needed vaccines include: Flu shot: get one every year. COVID-19 vaccine: ask your provider what is best for you. Tetanus-diphtheria and acellular pertussis (Tdap) vaccine: have one at or after age 19 as one of your tetanus-diphtheria vaccines if you did not receive it as an adolescent. Tetanus-diphtheria: have a booster (or Tdap) every 10 years. Varicella vaccine: receive 2 doses if you never had chickenpox or the varicella vaccine. Hepatitis B vaccine: receive 2, 3, or 4 doses, depending on your exact circumstances. Measles, mumps, and rubella (MMR) vaccine: receive 1 to 2 doses if you are not already immune to MMR. Your provider can tell you if you are immune. Ask your provider about the human papillomavirus (HPV) vaccine if: You have not received the HPV vaccine in the past You have not completed the full vaccine series (you should catch up on this shot) Ask your provider if you should receive other immunizations if you have certain health problems that increase your risk for some diseases such as pneumonia. INFECTIOUS DISEASE SCREENING Women who are sexually active should be screened for chlamydia and gonorrhea up until age 25. Women 25 years and older should be screened for chlamydia and gonorrhea if at high risk. Screening for hepatitis C: All adults ages 18 to 79 should get a one-time test for hepatitis C. people should be screened at every . Screening for human immunodeficiency virus (HIV): All people ages 15 to 65 should get a one-time test for HIV. Depending on your lifestyle and medical history, you may also need to be screened for infections such as syphilis and HIV, as well as other infections. PHYSICAL EXAM All adults should visit their provider from time to time, even if they are healthy. The purpose of these visits is to: Screen for disease Assess your risk of future medical problems Encourage a healthy lifestyle Update your vaccinations and other preventive care services Maintain a relationship with a provider in case of an illness Your height, weight, and BMI should be checked at every exam. During your exam, your provider may ask you about: Depression and anxiety Diet and exercise Alcohol and tobacco use Safety issues, such as using seat belts, smoke detectors, and intimate partner violence Your medicines and risk for interactions SKIN SELF-EXAM Your provider may check your skin for signs of skin cancer, especially if you're at high risk, such as if you: Have had skin cancer before Have close relatives with skin cancer Have a weakened immune system OTHER SCREENING Talk with your provider about colon cancer screening if you have a strong family history of colon cancer or polyps, or if you have had inflammatory bowel disease or polyps yourself. Routine bone density screening of women under 40 is not recommended. Quality Reporting (2019) Adult ([facility] 138/01/20/69) Smoking risk assessment performed?: Yes Patient Tobacco Use Status: Never used Tobacco Depression screening performed: Yes Screen Results: Yes Negative screen Systolic BP not done?: No Diastolic BP not done?: No BMI screening not done: No Sexual Activity Screening ([facility] 153) Sexually active?: Yes Immunizations ([facility] 147, 117) Annual Influenza Vaccine: Yes Measles Antibody Test: No Mumps Antibody Test: No Rubella Antibody Test: No Varicella Antibody Test: No Anti Hepatitis A IgG Antigen test: No Anti Hepatitis B Virus Surface Ab test: No Fall Risk Screening ([facility] 139) Last assessed Fall Risk: 10/22/25 Fall risk assessment: No Falls in past year Dementia Assessment (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 Acquired hypothyroidism E03.9 Hypothyroidism type: acquired HLD (hyperlipidemia) E78.5 Influenza vaccination administered at current visit Z23 CPT Codes Advance Care Planning - Time spent: 16-45 minutes ([id number]) Office Procedure - CPT: 95405-Hqk Irrigation/Lavage ([id number]) EKG - CPT: 07473-Utxgkuzgcabgmzizc, Complete ([id number]) Vision Screening - Vision Screenin - Vision Screening ([id number]) Additional Codes PHQ-9 - 05726 - PHQ-9 Billing: Yes ([id number]) Advance Care Planning Advance Care Planning discussion: Exists, not on file Date of discussion: 10/22/25 Who was present: self Forms completed: Health Care Proxy, MOLST and Living will Time spent: 16-45 minutes Actual minutes spent: 16
[2025-10-22 13:31] VITALS: BP 99/66; PULSE 70; RESP 12; TEMP 36.3; O2SAT 98; BMI 21.8
== END 2025-10-22 15:28 | disposition home or self-care (01) ==
LOC: HO.HMCFM 13:00
PROVIDERS: PCP Nurse Practitioner Family; Visit Provider Nurse Practitioner Family
DX: Z00.00 Encounter for general adult medical examination without abnormal findings (principal); E74.89 Other specified disorders of carbohydrate metabolism; R94.31 Abnormal electrocardiogram [ECG] [EKG]; H61.22 Impacted cerumen, left ear; K58.9 Irritable bowel syndrome, unspecified; K90.0 Celiac disease; E78.5 Hyperlipidemia, unspecified; E03.9 Hypothyroidism, unspecified; M21.611 Bunion of right foot; Z23 Encounter for immunization

== ENCOUNTER 2025-10-27 09:35 | Outpatient (AMB) | payer OTHER, SELFPAY ==
--- OUTSIDE RECORDS SUMMARY | 2025-10-27 09:38 | XMS_ITS | Patient Health Record ---
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 Name Role Phone Jennie AQUINO, Danilo Primary Care Provider Miguel Angel Zee Unavailable [phone] Allergies Allergen (clinical drug ingredient) Drug/Non Drug Allergy documented on EMR Reaction Allergy Type Onset Date Status Information temporarily unavailable gluten (uncoded) Unknown Allergy Active Information temporarily unavailable Paroxetine HCl anxiety Drug Allergy Active Reason For Referral No Information Medications Medication [...] Problem Status W/U Status Risk Notes Problem Information temporarily unavailable 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 confirmed Problem Information temporarily unavailable Neuralgia - Neuritis (729.2) Active confirmed Problem Information temporarily unavailable Flat Foot, 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 confirmed Plan Of Treatment Pending Test Test Name Order Date X ray : Foot, right 2V 11/16/2012 [id number] Destruction, 1-14 03/22/2013 [id number] Destruction, 1-14 11/16/2012 Insurance Providers Payer Name Payer Address Payer Phone Subscriber Number Group Number Insured Name Patient Relationship to Insured Coverage Start Date Coverage End Date Medicare National [employer] [address] [place] [address] [place] [address] [id number] Angeli Vyas Self - patient is the insured [address] [place] [address] [address] [place] [address] [phone] [id number] Angeli Vyas Self - patient is the insured Medical (General) History Medical History History ICD Code back, hip, knee pain cancer headaches/migraines neuropathy thyroid disorder warts Surgical History Surgery Date(Month/Year) tonsillectomy ovarian surgery 1961 abdominal surgery 2005 reconstructive surgery 2009
[2025-10-27 09:47] VITALS: BP 110/52; PULSE 74; RESP 16; TEMP 36.7; O2SAT 93; BMI 22.0
--- NOTE | 2025-10-27 09:47 | MHC.OFFWIV ---
Intake Vital Signs 10/27/25 09:47 Height 5 ft 3 in Weight 56.245 kg BMI 22.0 BP 110/52 L Blood Pressure Location Lt brachial Position Sitting Respiration 16 Pulse 74 Pulse Source Pulse Oximeter Temp 98.0 F Temp Source Oral Pulse Oximetry (%) 93 Oxygen Delivery Method Room Air Intake Visit Reasons: EP Left ear flush Intake Note: Pt is here today c/o Lt ear blocked Patient Tobacco Use Status: Never used Tobacco Allergies gluten (GLUTEN) Allergy (Severe, Verified 10/27/25 09:47) DIARRHEA perfume (PERFUME) Allergy (Mild, Verified 10/27/25 09:47) DIFFICULTY BREATHING paroxetine (From PAXIL) Allergy (Unknown, Verified 10/27/25 09:47) UNKNOWN SMOKE Allergy (Mild, Uncoded 10/27/25 09:47) DIFFICULTY BREATHING HPI HPI Comments History of Present Illness Details Chief Complaint: ?I have ear wax in my ears.? History of Present Illness: The patient presents for evaluation of ear cerumen build-up left ear. She states that an ear lavage was performed earlier today in clinic, which successfully cleared the wax from the left ear. She notes a transient sensation of dizziness/off-balance following the procedure, which the clinician explained can occur due to pressure changes during irrigation, after history taking symptoms improved. She reports that her primary care provider attempted irrigation on Wednesday but was unable to clear the wax at that time. She routinely uses DuBrops approximately once a month to loosen earwax. No other ear-related complaints were expressed. Review of Systems: ENT: Reports recent ear wax impaction and transient dizziness after lavage. The patient was evaluated for ear cerumen management. Examination revealed clear right ear canal post-lavage and mild residual cerumen in the left ear with both tympanic membranes intact and normal. Problem #1: Cerumen impaction (resolved) Assessment: Previously impacted cerumen now resolved in the right ear; mild residual cerumen in the left ear without obstruction.Plan: No intervention required today. Education provided on using 1?2 drops of hydrogen peroxide mixed with water to soften cerumen prior to future clinic visits if buildup recurs. Continue using debrox previously used. Return to clinic as needed for persistent or recurrent symptoms. Problem #2: Transient dizziness following ear irrigation Assessment: Brief off-balance sensation post-lavage, expected due to pressure changes; currently improving.Plan: Reassurance provided; no specific treatment indicated. Advise patient to seek care if dizziness persists or worsens. [facility] Medical History (Updated 10/27/25 @ 10:08 by [facility] Willough[facility]) Abdominal tumor Tumor IBS (irritable bowel syndrome) Anxiety Raynaud disease Kidney stone Celiac disease Thyroid disease Surgical History (Updated 07/03/25 @ 12:58 by Lyubov Stoddard [facility]) History of colonoscopy (~2022) H/O abdominal surgery H/O: hysterectomy H/O bilateral oophorectomy Hx of tonsillectomy Family History (Updated 05/18/25 @ 12:00 by Ana Landers MA) Mother Cardiovascular disease Breast cancer Malignant melanoma Social History (Updated 05/18/25 @ 11:01 by Ana Landers MA) Housing: House Alcohol intake: current Patient Tobacco Use Status: Never used Tobacco e-Cigarette/Vaping Use: Never Used Second Hand Smoke Exposure: No service: No Current occupational status: employed 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 Oriented X3.? No acute distress.? Head: Normocephalic, atraumatic, no step-offs or deformities Eyes: Pupils equal, round and reactive to light.? ENT: Pharynx normal.??External ears normal, TMs normal bilaterally and EAC's normal. No pain with manipulation of external ears bilaterally. No mastoid tenderness. Neck: Normal inspection.? Neck supple.? CVS: No distress Respiratory: No respiratory distress.? Skin: Skin warm and dry.? Normal skin color.? Normal skin turgor.? Extremities:. 5/5 strength to bilateral upper and lower extremities Neuro: Oriented X 3.? No motor deficit.? No sensory deficit. CN 2-12 intact Vital Signs: Last Vital Signs Temp 98.0 F 10/27/25 09:47 Pulse 74 10/27/25 09:47 Resp 16 10/27/25 09:47 BP 110/52 L 10/27/25 09:47 Pulse Ox 93 10/27/25 09:47 Oxygen Delivery Method Room Air 10/27/25 09:47 BMI result Body Mass Index 22.0 vss Assessment & Plan Assessment & Plan (1) Impacted cerumen: Code(s): H61.20 - Impacted cerumen, unspecified ear Plan Take your medications as prescribed. If you were prescribed antibiotics today, it is important that you take your medication to their entirety, do not skip any doses, do not finish them early. Follow-up with your primary care provider this week. Go to the emergency department with new or worsening symptoms. In case of emergency call 911 Coding Level of Care Code Est Pt Level 3 (44544) Diagnoses Impacted cerumen H61.20
== END 2025-10-27 12:27 | disposition home or self-care (01) ==
PROVIDERS: PCP Nurse Practitioner Family; Visit Provider Physician Assistant
DX: H61.20 Impacted cerumen, unspecified ear (principal)

== ENCOUNTER 2025-11-09 10:19 | Outpatient (AMB) | payer OTHER, SELFPAY ==
[2025-11-09 10:35] VITALS: BP 130/66; PULSE 66; TEMP 36.8; O2SAT 97; BMI 21.8
--- NOTE | 2025-11-09 10:35 | MHC.OFFWIV ---
Intake Vital Signs 11/09/25 10:35 Height 5 ft 3 in Weight 123 lb BMI 21.8 BP 130/66 Blood Pressure Location Lt brachial Position Sitting Pulse 66 Pulse Source Pulse Oximeter Temp 98.2 F Temp Source Oral Pulse Oximetry (%) 97 Oxygen Delivery Method Room Air Intake Visit Reasons: EP possible sinus infection, throat irritation Intake Note: Patient presents c/o sore throat, swollen glands, sinus congestion x1 week. Patient Tobacco Use Status: Never used Tobacco Allergies gluten (GLUTEN) Allergy (Severe, Verified 11/09/25 10:38) DIARRHEA perfume (PERFUME) Allergy (Mild, Verified 11/09/25 10:38) DIFFICULTY BREATHING paroxetine (From PAXIL) Allergy (Unknown, Verified 11/09/25 10:38) UNKNOWN SMOKE Allergy (Mild, Uncoded 11/09/25 10:38) DIFFICULTY BREATHING HPI HPI Comments History of Present Illness Details History - The patient is a 79 year old female presenting for evaluation of swollen glands, sore throat, and difficulty swallowing. - She reports her symptoms began a little over a week ago and include very swollen glands which cause her sore throat and make it very hard to swallow. - She also reports sinus pain, a feeling of having a big head, and believes she may have a sinus infection. - The swollen glands were initially worse on the left side but are now present on both sides. - She denies any fever, cough, ear pain, or difficulty breathing. Review of Systems - Constitutional: Denies fever. - Head: Reports a big head feeling and sinus pain. - HEENT: Reports swollen glands for over a week, worse on the left side but now bilateral. Reports sore throat and dysphagia. Denies ear pain. - Respiratory: Denies cough or dyspnea. All systems reviewed and are unremarkable except as noted in HPI Physical Exam General: Cooperative, healthy appearing, comfortable and no acute distress Orientation/consciousness: Patient oriented x3 Limitations: No limitations Head: Normal to inspection Ears: Hearing grossly normal bilaterally, external ears normal, EAC's normal bilaterally and TM's normal bilaterally Nose: Normal external nose present, Normal nares present and No nasal discharge present Face and sinus: Sinuses tender frontal and maxillary regions L>R Mouth: Normal oral and palatal mucosa present and moist mucous membranes Throat: tonsils normal, no exudates, uvula midline, posterior oropharynx erythema Eyes: Appearance normal, both eyes and all related structures Neck: Normal visual inspection, full ROM, swollen glands noted, especially on the left side Respiratory: Normal respiratory effort, able to speak in complete sentences, no respiratory distress, not tachypneic, no tripod positioning and no use of accessory muscles Skin: No rashes or lesions noted Neuro: Patient oriented x3 Extremities: Normal to inspection and Yes no clubbing, cyanosis or edema PFSH Medical History (Updated 10/27/25 @ 10:08 by [facility]) Abdominal tumor Tumor IBS (irritable bowel syndrome) Anxiety Raynaud disease Kidney stone Celiac disease Thyroid disease Surgical History (Updated 07/03/25 @ 12:58 by Lyubov Stoddard, [facility]) History of colonoscopy (~2022) H/O abdominal surgery H/O: hysterectomy H/O bilateral oophorectomy Hx of tonsillectomy Family History (Updated 05/18/25 @ 12:00 by Ana Landers MA) Mother Cardiovascular disease Breast cancer Malignant melanoma Social History (Updated 05/18/25 @ 11:01 by Ana Landers MA) Housing: House Alcohol intake: current Patient Tobacco Use Status: Never used Tobacco e-Cigarette/Vaping Use: Never Used Second Hand Smoke Exposure: No service: No Current occupational status: employed 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 Current occupational exposures/hazards: No Cognitive needs: No Hearing needs: No Vision needs: No Review of Systems Const All systems reviewed & are unremarkable except as noted in HPI and below Physical Exam Vital Signs: Last Vital Signs Temp 98.2 F 11/09/25 10:35 Pulse 66 11/09/25 10:35 BP 130/66 11/09/25 10:35 Pulse Ox 97 11/09/25 10:35 Oxygen Delivery Method Room Air 11/09/25 10:35 BMI result Body Mass Index 21.8 Results AMB Rapid Strep AMB Rapid Strep Positive Last Edit by Andie Chase CMA on 11/09/25 10:53 Results Reviewed Results Reviewed: Laboratory Last Values Strep Scn Rapid Clinic Positive 11/09/25 10:47 Assessment & Plan Assessment & Plan (1) Acute streptococcal pharyngitis: Code(s): J02.0 - Streptococcal pharyngitis Plan: Plan Patient was informed and verbally consented to the use of an ambient scribe for clinic note documentation during this visit. - VSS, pt well appearing and PE remarkable for posterior oropharynx erythema. - The patient's strep test was positive, confirming the diagnosis. - An antibiotic prescription will be sent to [facility] in [place]. - The patient was advised that she will no longer be contagious after a couple of days on antibiotics but should still exercise caution by washing her hands frequently and avoiding sharing drinks or straws. Orders: Orders AMB Rapid Strep Screen Today Z13.9 - Encounter for screening, unspecified Medications: New amoxicillin 500 mg PO Q12H 20 tabs 0RF Coding Level of Care Code Est Pt Level 3 (59785) Diagnoses Acute streptococcal pharyngitis J02.0
== END 2025-11-09 11:03 | disposition home or self-care (01) ==
PROVIDERS: PCP Nurse Practitioner Family; Visit Provider Physician Assistant
DX: Z13.9 Encounter for screening, unspecified (principal); J02.0 Streptococcal pharyngitis

== ENCOUNTER → 2025-11-09 10:19 | Outpatient (BNVA) | payer OTHER, SELFPAY | PROVIDERS: PCP Nurse Practitioner Family; Visit Provider Physician Assistant | DX: J02.0 Streptococcal pharyngitis (principal) | CPT/HCPCS: 87880 ==